=== PATIENT | female | born 1950 | race Caucasian/White ===

== ENCOUNTER → 2017-10-11 | Outpatient (CLI) | payer MEDICARE, OTHER ==
[~2017-10-11] MED LIST: ACET325 PO; ALLO300 PO; AMOCLA875 PO; ASCO500 PO; ATOR20 PO; Acidophilus La100 GM PO; CELE100 PO; FERR325 PO; GLIP5 PO; HYDR1TAB94 PO; LEVEMIR FL100 UNIT/1 SC; LEVFLO250 PO; LISI5; LORA.5 PO; MAGOXI400 PO; METF500 PO; METF500C PO; METO100ER PO; METO25 PO; METO50ER PO; METO5A PO; MYNEPHRON CAPSUL1 MG PO; Metformin HCl1000 MG PO; Nephro-Vite RX1 EA PO; Norco 7.5-3251 EACH PO; Omeprazole20 M1 PO; POTA10T PO; PREG150 PO; Prinivil10 MG PO; SITA100T2 PO; TRAZ100 PO; TRIHYD253B PO; XARELTO20 MG PO; ZINC220 PO
[2017-10-13 12:59] LABS: HPV Genotype 16 Not Detected (NOTDET); HPV Genotype 18 Not Detected (NOTDET)
[2017-10-20 14:43] LABS: HPV High Risk Other Detected (NOTDET)
== END ==
LOC: LAB 14:56 → LAB SHORT 14:56
PROVIDERS: Obstetrics & Gynecology
DX: Z01.419 Encounter for gynecological examination (general) (routine) without abnormal findings (principal)
CPT/HCPCS: 87624; G0123

== ENCOUNTER → 2017-10-11 | Outpatient (CLI) | payer MEDICARE, OTHER ==
[~2017-10-11] MED LIST changes: +Desyrel150 MG PO; +GEMF600 PO; -METO25 PO; +METO50 PO; +TORSE20 PO; +Tamiflu75 MG PO
== END | disposition home or self-care (01) ==
LOC: LAB SHORT 07:49 → PLD 07:49
DX: R93.8 Abnormal findings on diagnostic imaging of other specified body structures (principal)
CPT/HCPCS: 88305

== ENCOUNTER → 2017-11-17 | Outpatient (CLI) | payer MEDICARE, OTHER ==
[~2017-11-17] MED LIST changes: -Desyrel150 MG PO; -GEMF600 PO; +METO25 PO; -METO50 PO; -TORSE20 PO; -Tamiflu75 MG PO
== END ==
LOC: LAB SHORT 08:35 → LAB 08:35
DX: R87.810 Cervical high risk human papillomavirus (HPV) DNA test positive (principal)
CPT/HCPCS: 88305

== ENCOUNTER 2018-08-29 11:35 | Day surgery (SDC) | payer MEDICARE, OTHER ==
[~2018-08-29] VITALS: Ht 160 cm; Wt 97.6 kg
[~2018-08-29 11:35] MED LIST changes: +Desyrel150 MG PO; +GEMF600 PO; -METO25 PO; +METO50 PO; +TORSE20 PO; +Tamiflu75 MG PO
[2018-08-29] MEDS ORDERED: NORT10S PO (12:26)
[2018-08-29] MEDS ORDERED: INSULANPEN (12:27)
--- NOTE | 2018-08-29 12:32 | NUR ---
08/29/18 1232 Genaro Lovell 1ST IV ATTEMPT IN RFA UNSUCCESSFUL, ORSC.BDK 2ND IV ATTEMPT IN RAC UNSUCCESSFUL, ORSC.BDK 3RD IV ATTEMPT IN RFA SUCCESSFUL, ORSC.FLL
[2018-09-05] MEDS ORDERED: Prinivil10 MG PO (12:32)
[2018-09-05] MEDS ORDERED: GLIP5 PO (12:33)
[2018-09-05] MEDS ORDERED: TRAZ150T57 PO (12:34)
== END 2018-08-29 13:49 | disposition home or self-care (01) ==
LOC: ORSCSDS 11:35
DX: Z85.038 Personal history of other malignant neoplasm of large intestine (principal); D12.0 Benign neoplasm of cecum; K63.5 Polyp of colon; I48.91 Unspecified atrial fibrillation; I10 Essential (primary) hypertension; E11.9 Type 2 diabetes mellitus without complications; Z79.01 Long term (current) use of anticoagulants; Z79.4 Long term (current) use of insulin; Z79.899 Other long term (current) drug therapy
CPT/HCPCS: 82947; 88305; J2370; J7120

== ENCOUNTER 2018-09-18 06:33 | Day surgery (SDC) | payer MEDICARE, OTHER ==
[~2018-09-18] VITALS: Ht 160 cm; Wt 99.1 kg
[~2018-09-18 06:33] MED LIST changes: +INSULANPEN; +NORT10S PO; +TRAZ150T57 PO
[2018-09-18] MEDS ORDERED: NORT25 PO (07:20)
[2018-09-18] MEDS ORDERED: ATOR20 PO (07:21)
--- NOTE | 2018-09-18 07:34 | NUR ---
09/18/18 0734 Ezra Ceja FIRST IV ATTEMPT IN AC PER PT'S REQUEST INFILTRATED. SECOND ATTEMPT IN FOREARM WOULD NOT ADVANCE. PT TOLERATED PROCEDURES WELL.
--- NOTE | 2018-09-18 08:33 | NUR ---
09/18/18 0833 Guillermina Cardenas DEFICIT 175 PER AQUALUX MACHINE
== END 2018-09-18 09:20 | disposition home or self-care (01) ==
LOC: ORSCSDS 06:33
PROVIDERS: Obstetrics & Gynecology
PROC: 0UDB8ZX Extraction of Endometrium, Via Natural or Artificial Opening Endoscopic, Diagnostic (ICD-10-PCS; principal; 2018-09-18 07:30)
DX: N95.0 Postmenopausal bleeding (principal); N85.00 Endometrial hyperplasia, unspecified; N84.0 Polyp of corpus uteri; E11.9 Type 2 diabetes mellitus without complications; I10 Essential (primary) hypertension; I48.91 Unspecified atrial fibrillation; Z79.01 Long term (current) use of anticoagulants; Z79.4 Long term (current) use of insulin; Z79.899 Other long term (current) drug therapy; E66.01 Morbid (severe) obesity due to excess calories; Z68.38 Body mass index [BMI] 38.0-38.9, adult; R93.89 Abnormal findings on diagnostic imaging of other specified body structures
CPT/HCPCS: 82947; 88305; J1100; J2250; J2405; J3010

== ENCOUNTER → 2019-02-28 | Outpatient (CLI) | payer MEDICARE, OTHER ==
[~2019-02-28] MED LIST changes: +Econazole Nitra15 GM; +INSULANPEN SC; +MEDR5 PO; +NORT25 PO; +Nortriptyline H10 MG PO; +POTCHL20ER; +TRULICITY0.75 MG/0. SC
== END | disposition home or self-care (01) ==
LOC: PLD 08:38 → LAB SHORT 08:38
DX: N95.0 Postmenopausal bleeding (principal)
CPT/HCPCS: 88305

== ENCOUNTER 2019-04-03 07:01 | Day surgery (SDC) | payer MEDICARE, OTHER ==
[~2019-04-03] VITALS: Ht 160 cm; Wt 97.0 kg
[~2019-04-03 07:01] MED LIST changes: -Econazole Nitra15 GM; -POTCHL20ER
[2019-04-03] MEDS ORDERED: Econazole Nitra15 GM (08:04)
[2019-04-03] MEDS ORDERED: POTCHL20ER (08:04)
--- NOTE | 2019-04-03 08:25 | NUR ---
04/03/19 0825 Anni Castañeda S IODINE APPLIED TO RIGHT FOREARM TO SEE IF PT. HAD ANY REACTION. NO REACTION OBSERVED WHERE IODINE WAS APPLIED. PT. VERBALIZES IODINE/BETADINE GIVES HER BLISTERS/RASH IF OPEN AREA OR CUT. DR. SEALS & ORSC.OLG NOTIFIED OF BETADINE/IODINE ALLERGY & TAPE ALLERGY. ALSO DR. SEALS & ANDREAC.OLG NOTIFIED OF NO REACTION TO BETADINE ON RIGHT FOREARM WHEN APPLIED. PT. VERBALIZES TEGADERM OK TO USE FOR IV.
--- NOTE | 2019-04-03 08:48 | NUR ---
04/03/19 0848 Maye Hager UTERINE DEFICIT 500ML AWARE
--- NOTE | 2019-04-03 09:19 | NUR ---
04/03/19 0919 Marcia Coats PT INTO RECLINER. SCANT RED BLOOD IN PAD. CLEAN PAD APPLIED WITH MADONNA PANTIES PRIOR TO TRANSFER INTO RECLINER. PT DENIES PAIN AND NAUSEA. Colby CUNNINGHAM AT CHAIRSIDE.
== END 2019-04-03 09:44 | disposition home or self-care (01) ==
LOC: ORSCSDS 07:01
PROVIDERS: Obstetrics & Gynecology
PROC: 0UDB8ZX Extraction of Endometrium, Via Natural or Artificial Opening Endoscopic, Diagnostic (ICD-10-PCS; principal; 2019-04-03 08:15)
DX: N95.0 Postmenopausal bleeding (principal); N84.0 Polyp of corpus uteri; R93.89 Abnormal findings on diagnostic imaging of other specified body structures; E11.22 Type 2 diabetes mellitus with diabetic chronic kidney disease; I12.9 Hypertensive chronic kidney disease with stage 1 through stage 4 chronic kidney disease, or unspecified chronic kidney disease; I25.10 Atherosclerotic heart disease of native coronary artery without angina pectoris; N18.2 Chronic kidney disease, stage 2 (mild); Z79.4 Long term (current) use of insulin; Z79.84 Long term (current) use of oral hypoglycemic drugs; I48.91 Unspecified atrial fibrillation; Z79.01 Long term (current) use of anticoagulants
CPT/HCPCS: 82947; 88305; J1885; J2250; J2370; J2405; J2704; J3010; J7120

== ENCOUNTER 2020-03-11 14:26 | Inpatient (IN) | payer MEDICARE, OTHER ==
[~2020-03-11] VITALS: Ht 160 cm; Wt 106.1 kg
[~2020-03-11 14:26] MED LIST changes: -ALLO300 PO; +Econazole Nitra15 GM; -INSULANPEN SC; +POTCHL20ER; -TORSE20 PO; -TRULICITY0.75 MG/0. SC; -XARELTO20 MG PO
[2020-03-11 15:14] LABS: BASOPHILS ABSOLUTE AUTO 0.01 K/mm3 (0.00-0.23); BASOPHILS PERCENT AUTO 0 % (0-2); EOSINOPHILS ABSOLUTE AUTO 0.12 K/mm3 (0.00-0.68); EOSINOPHILS PERCENT AUTO 2 % (0-6); Hematocrit 39.8 % (33.0-51.0); Hemoglobin 13.2 g/dL (11.5-16.0); IMMATURE GRAN ABSOLUTE AUTO 0.04 K/mm3 (0.00-0.10); IMMATURE GRAN PERCENT AUTO 1 % (0-1); LYMPHOCYTES ABSOLUTE AUTO 1.54 K/mm3 (0.84-5.20); LYMPHOCYTES PERCENT AUTO 20 % (21-46); MONOCYTES ABSOLUTE AUTO 0.51 K/mm3 (0.16-1.47); MONOCYTES PERCENT AUTO 7 % (4-13); Mean Corpuscular HGB 29.4 pg (26.0-34.0); Mean Corpuscular HGB Conc 33.2 g/dL (31.5-36.5); Mean Corpuscular Volume 89 fL (80-100); Mean Platelet Volume 10.6 fL (9.1-12.4); NEUTROPHILS ABSOLUTE AUTO 5.33 K/mm3 (1.96-9.15); NEUTROPHILS PERCENT AUTO 71 % (41-73); Platelet Count 255 K/mm3 (150-400); Red Blood Cell Count 4.49 M/mm3 (3.80-5.20); White Blood Cell Count 7.55 K/mm3 (4.00-11.30)
[2020-03-11 15:49] LABS: Albumin, Blood 3.1 g/dL (3.4-5.0); Albumin/Globulin Ratio 0.8 (0.8-1.8); Bilirubin, Total 0.5 mg/dL (0.1-1.0); Bun/Creatinine Ratio 25.3 (12.0-20.0); Calcium, Blood 8.8 mg/dL (8.5-10.1); Creatinine, Blood 0.99 mg/dL (0.40-1.00); Potassium, Blood 3.7 mmol/L (3.5-5.5); Total Protein, Blood 7.1 g/dL (6.4-8.2); Troponin I 0.022 ng/mL (0.000-0.040)
[2020-03-11] MEDS ORDERED: ATOR20 PO (19:05)
[2020-03-11] MEDS ORDERED: METFORMIN HCL1000 M3 PO (19:05)
[2020-03-11] MEDS ORDERED: ALLO300 PO (19:05)
[2020-03-11] MEDS ORDERED: Metoclopramide10 MG PO (19:06)
[2020-03-11] MEDS ORDERED: XARELTO20 MG PO (19:07)
[2020-03-11] MEDS ORDERED: TORSE20 PO (19:09)
[2020-03-11] MEDS ORDERED: TRULICITY1.5 MG/0.1 SC (19:10)
[2020-03-11] MEDS ORDERED: BASAGLAR K100 UNIT/1 SC (19:10)
--- NOTE | 2020-03-12 06:50 | NUR ---
patient admitted for possible CHF. Patient came in with symptoms of shortness of breath, was given Lasix and improved. Patient remained in room air all night with no additional complaints of shortness of breath. Patient stable, no acute changes, no events overnight. pt refused prn bp control medications even after being edicated about the detention effects of high bp.
[2020-03-12 07:13] LABS: BASOPHILS ABSOLUTE AUTO 0.03 K/mm3 (0.00-0.23); BASOPHILS PERCENT AUTO 0 % (0-2); EOSINOPHILS ABSOLUTE AUTO 0.11 K/mm3 (0.00-0.68); EOSINOPHILS PERCENT AUTO 2 % (0-6); Hematocrit 40.6 % (33.0-51.0); Hemoglobin 13.4 g/dL (11.5-16.0); IMMATURE GRAN ABSOLUTE AUTO 0.03 K/mm3 (0.00-0.10); IMMATURE GRAN PERCENT AUTO 0 % (0-1); LYMPHOCYTES ABSOLUTE AUTO 1.27 K/mm3 (0.84-5.20); LYMPHOCYTES PERCENT AUTO 17 % (21-46); MONOCYTES ABSOLUTE AUTO 0.58 K/mm3 (0.16-1.47); MONOCYTES PERCENT AUTO 8 % (4-13); Mean Corpuscular HGB 29.4 pg (26.0-34.0); Mean Corpuscular Volume 89 fL (80-100); Mean Platelet Volume 10.2 fL (9.1-12.4); NEUTROPHILS ABSOLUTE AUTO 5.31 K/mm3 (1.96-9.15); NEUTROPHILS PERCENT AUTO 73 % (41-73); Platelet Count 236 K/mm3 (150-400); RDW Coefficient Variation 13.9 % (11.7-14.2); RDW Standard Deviation 45.1 fL (35.1-46.3); Red Blood Cell Count 4.56 M/mm3 (3.80-5.20); White Blood Cell Count 7.33 K/mm3 (4.00-11.30)
[2020-03-12 07:34] LABS: Bun/Creatinine Ratio 22.2 (12.0-20.0); Calcium, Blood 8.6 mg/dL (8.5-10.1); Creatinine, Blood 0.99 mg/dL (0.40-1.00); Potassium, Blood 3.4 mmol/L (3.5-5.5)
--- NOTE | 2020-03-12 09:01 | NUR ---
ASSUME CARE: PT IS ALERT AND ORIENTED X 3, VITALS HRR AFIB 90'S ON RESTING HR, TACHS UP TO [address] FRANKLIN CALLED AND MADE AWARE PT TO START ON METOPROLOL 100MG XLBID. BP SYSTOLIC 140'S, SATS ABOVE 95% ON ROOMAIR, AFEBRILE. PT RECEIVES LASIX FOR DIURESIS, PT STATED SHE FEELS MUCH BETTER TODAY THAN YESTERDAY AND THAT HER BREAHING IMPROVED. PT HAD BREAKFAST THIS MORNNG DENIES PAIN, NO OTHER ISSUES ENCOUNTERED WILL CONTINUE TO MONITOR
--- NOTE | 2020-03-12 13:45 | NUR ---
PT'S HRR REMAINED ON THE 130'S-140'S EVEN AFTER THE PO DOSE OF METOPROLOL 50MG IR AND ER. ORDER FOR ONETIME DOSE OF IV 5MG LOPRESSOR RECEIVED AND WAS GIVEN HR TREND DOWN TO 90'S FOR A SHORT AMOUNT OF TIME, HRR AT THIS TIME STILL AT AFIB 100'S-120'S, PT DENIES ANY CHEST PAIN/PALPITATIONS BUT SOMEHOW HAS MILD ORTHOPNEA AND IS RELIEVED BY REPOSITIONING. PT ALSO SCHEDULED FOR MRI TODAY ORDERED, SCREENING FORM FILLED BY THE PT. AT BEDSIDE. WILL CONTINUE TO MONITOR
--- NOTE | 2020-03-12 18:12 | NUR ---
PT SUMMARY: SEE PREVIOUS NOTES. HRR REMAINED ON THE 90'S-120'S AFIB, DENIES CHEST PAIN PRESSURE. BP SSTOLIC 130'S-150'S, REMAINED ON ROOMAIR, MILD SOB WITH EXERTION. NO ACUTE GOODEN FOR ZACHARIAH REST OF THE SHIFT, ECHO DONE TODAY EF INCREASED TO 55-60% FROM LAST ECHO 45%. HEAD MRI DON WEEL TO R/O POSS TIA, RESULT IS NEGATIVE FOR ANY ISCHEMIA/HEMMORHAGE. PT CURRENTLY IN BED NO COMPLAINS AT THIS TIME, INDEPENDENT IN THE ROOM. WILL REPORT TO ONCOMING SHIFT.
--- NOTE | 2020-03-13 04:04 | NUR ---
PT ATTEMPTING TO GET OOB WITHOUT HELP.DOES NOT USE CALL LIGHT.IMPULSIVE. CURRENTLY RIPPED TELE PATCHES OFF AND TOSSED TELE ASIDE. PT HAS DONE THIS AT LEAST TWICE TONIGHT.TAKES OFF CPAP WELL. PT IS ABLE TO TELL ME HER LOCATION, AND ,ALTHOUGH STATES SHE DOES NOT KNOW WHY SHE KEEPS TAKING EVERYTHING OFF.WILL CONTINUE WITH BED ALARM FOR SAFTEY.REMINDED OF CALL LIGHT USE FOR SAFETY WELL.
[2020-03-13 04:58] LABS: Bun/Creatinine Ratio 22.2 (12.0-20.0); Creatinine, Blood 1.08 mg/dL (0.40-1.00); Potassium, Blood 3.4 mmol/L (3.5-5.5)
--- NOTE | 2020-03-13 08:08 | NUR ---
SUMMARY PT CONFUSED DURING NIGHT. REMOVING TELE,CPAP AND BIOX PROBE.LESS CONFUSED THIS AM.CURRENTLY IN NO DISTRESS.
--- NOTE | 2020-03-13 17:49 | NUR ---
PCU DAYSHIFT SUMMARY PATIENT ALERT AND ORIENED TO SELF, LOCATION AND PARTIAL SITUATION - CONFUSED AT TIMES TO HISTORY, MEDICATIONS AND DATE/TIME. PATIENT DENIES ANY PAIN AT THIS TIME (DID HAVE A HEADACHE EARLIER TODAY RELIEVED WITH MEDICATIONS PER EMAR). PATIENT REMAINS IN AFIB IN THE 90'S- 115'S T/O SHIFT - MD FRANKLIN AWARE, NEW ORDERS GIVEN FOR MEDICATIONS (SEE EMAR). PATIENT SBA IN ROOM TO INDEPENDENT. HOME CPAP AT BEDSIDE AND CONTINUOUS BIOX IN PLACE. PATIENT REFUSED SHOWER THIS SHIFT. LUNG SOUNDS CLEAR TO CRACKLES IN BASES. NO ACUTE CHANGES NOTED. WILL CONTINUE MONITOR AND REPORT TO NOC SHIFT RN. CALL LIGHT W/I REACH AND BED ALARM ON.
--- NOTE | 2020-03-14 05:13 | NUR ---
SLEPT THROUGH NIGHT COMFORTABLY TELE 90'S-110'S CPAP @HS/ROOM AIR UP TO BATHROOM X3, NO BM SOME INCREASED CONFUSION AT NIGHT VSS CALL LIGHT WITHIN REACH, BED IN LOWEST POSITION. WILL CONTINUE TO MONITOR.
[2020-03-14 05:20] LABS: Bun/Creatinine Ratio 24.1 (12.0-20.0); Creatinine, Blood 1.08 mg/dL (0.40-1.00); Potassium, Blood 3.6 mmol/L (3.5-5.5)
--- NOTE | 2020-03-14 07:45 | NUR ---
pt laying in bed awake a/ox3, pleasant and cooperative with care, follows commadns well, denies pain at this time, lungs are clear t/o, resp even and unlbored, using home cpap at hs, r/a , no cough noted, hrirr, tele in place running afib per monitor, see strip, no edema noted, ppp+1, cap refill <3sec, vs stable, afebrile, iv site is clear and patent, bt x4, abd flat soft nontender, voids without diff, skin c/w/d, maew, jaclyn, call light in reach.
[2020-03-14] MEDS ORDERED: METO100ER PO (11:21)
[2020-03-14] MEDS ORDERED: AMOCLA500 PO (11:22)
--- NOTE | 2020-03-14 12:22 | NUR ---
PT HAS BEEN DISCHARGED TO HOME, WENT OVER DISCHARGE INSTRUCTIONS WITH HER, AND SPOUCE, SHE VERBALIZED UNDERSTANDING, NEW MEDS CALLED INTO [facility], IV REMOVED INTACT, SHE GOT HERSELF DRESSED, AND WAS TAKEN TO CAR VIA WHEELCHAIR. SHE HAS ALL HER BELONGINGS.
== END 2020-03-14 12:35 | disposition home or self-care (01) | DRG 292 ==
LOC: ER 14:26 → PCU 14:27
PROVIDERS: Internal Medicine Endocrinology, Diabetes & Metabolism; Nurse Practitioner Acute Care; Physician Assistant; ADMIT Internal Medicine
DX: I13.0 Hypertensive heart and chronic kidney disease with heart failure and stage 1 through stage 4 chronic kidney disease, or unspecified chronic kidney disease (principal); I48.19 Other persistent atrial fibrillation; Z68.41 Body mass index [BMI] 40.0-44.9, adult; E11.22 Type 2 diabetes mellitus with diabetic chronic kidney disease; N18.3 Chronic kidney disease, stage 3 (moderate); I50.9 Heart failure, unspecified; E11.621 Type 2 diabetes mellitus with foot ulcer; L97.529 Non-pressure chronic ulcer of other part of left foot with unspecified severity; D63.1 Anemia in chronic kidney disease; E66.9 Obesity, unspecified; J01.80 Other acute sinusitis; R20.2 Paresthesia of skin; Z85.038 Personal history of other malignant neoplasm of large intestine; Z79.01 Long term (current) use of anticoagulants; Z79.4 Long term (current) use of insulin; Z79.899 Other long term (current) drug therapy
CPT/HCPCS: 36415; 70450; 70551; 71046; 80048; 80053; 82947; 83735; 83880; 84100; 84484; 85025; 85379; 93005; 93010; 93306; 94762; 96372; 96374; 96375; 96376; 98960; 99285-25; A9270; A9270-GY; G0378; J0360; J1650; J1940

== ENCOUNTER 2021-07-01 22:12 | Inpatient (IN) | payer MEDICARE ==
[~2021-07-01] VITALS: Ht 157.5 cm; Wt 102.7 kg
[~2021-07-01 22:12] MED LIST changes: +ALLO300 PO; +AMOCLA500 PO; +BASAGLAR K100 UNIT/1 SC; +METFORMIN HCL1000 M3 PO; +Metoclopramide10 MG PO; +TORSE20 PO; +TRULICITY4.5 MG/0.5 SC; +XARELTO20 MG PO
[2021-07-01 22:45] LABS: BASOPHILS ABSOLUTE AUTO 0.02 K/mm3 (0.00-0.23); BASOPHILS PERCENT AUTO 0 % (0-2); EOSINOPHILS ABSOLUTE AUTO 0.03 K/mm3 (0.00-0.68); EOSINOPHILS PERCENT AUTO 0 % (0-6); Hematocrit 36.9 % (33.0-51.0); Hemoglobin 12.5 g/dL (11.5-16.0); IMMATURE GRAN ABSOLUTE AUTO 0.03 K/mm3 (0.00-0.10); IMMATURE GRAN PERCENT AUTO 0 % (0-1); LYMPHOCYTES ABSOLUTE AUTO 1.14 K/mm3 (0.84-5.20); LYMPHOCYTES PERCENT AUTO 13 % (21-46); MONOCYTES ABSOLUTE AUTO 0.49 K/mm3 (0.16-1.47); MONOCYTES PERCENT AUTO 6 % (4-13); Mean Corpuscular HGB 29.5 pg (26.0-34.0); Mean Corpuscular HGB Conc 33.9 g/dL (31.5-36.5); Mean Corpuscular Volume 87 fL (80-100); Mean Platelet Volume 10.1 fL (9.1-12.4); NEUTROPHILS ABSOLUTE AUTO 7.21 K/mm3 (1.96-9.15); NEUTROPHILS PERCENT AUTO 81 % (41-73); Platelet Count 243 K/mm3 (150-400); RDW Coefficient Variation 14.3 % (11.7-14.2); RDW Standard Deviation 44.7 fL (35.1-46.3); Red Blood Cell Count 4.24 M/mm3 (3.80-5.20); White Blood Cell Count 8.92 K/mm3 (4.00-11.30)
[2021-07-01 23:00] LABS: International Normalized Ratio 1.21; Prothrombin Time Results 12.5 Sec (9.7-11.5)
[2021-07-01 23:06] LABS: Alanine Aminotransfer (ALT/SGP 21 U/L (12-78); Albumin, Blood 2.7 g/dL (3.4-5.0); Albumin/Globulin Ratio 0.7 (0.8-1.8); Alk Phos 98 U/L (50-136); Anion Gap 6 mmol/L (6-16); Aspartate Aminotrans (AST/SGOT 16 U/L (12-37); Bilirubin, Total 0.6 mg/dL (0.1-1.0); Blood Urea Nitrogen 14 mg/dL (8-24); Bun/Creatinine Ratio 16.3 (12.0-20.0); CO2, Blood 31 mmol/L (21-32); Calcium, Blood 8.4 mg/dL (8.5-10.1); Chloride, Blood 99 mmol/L (98-108); Creatinine, Blood 0.86 mg/dL (0.40-1.00); Globulin, Blood 3.9 g/dL (2.2-4.0); Glomerular Filtration Rate >60 (60-); Glucose, Blood 176 mg/dL (70-99); Magnesium, Blood 1.2 mg/dL (1.6-2.4); Potassium, Blood 3.7 mmol/L (3.5-5.5); Sodium, Blood 136 mmol/L (136-145); Total Protein, Blood 6.6 g/dL (6.4-8.2); Troponin I <0.015 ng/mL (0.000-0.040)
[2021-07-01 23:58] LABS: Source, Urine Clean Catch
[2021-07-02] LABS: Bilirubin, Urine Neg (Neg); Blood, Urine Neg (Neg); Glucose Qualitative, Urine Neg (Neg); Ketones, Urine Neg (Neg); Leukocyte Esterase, Urine Neg (Neg); Nitrite, Urine Neg (Neg); Protein, Urine Neg (Neg); Urobilinogen, Urine NORM (Normal)
[2021-07-02 00:47] LABS: Appearance, Urine Clear (Clear); Color, Urine Yellow (P-Yellow)
[2021-07-02 00:51] LABS: Influenza A, PCR NEGATIVE (NEGATIVE); Influenza B, PCR NEGATIVE (NEGATIVE); Resp Syncytial Virus, PCR NEGATIVE (NEGATIVE); SARS-Cov-2 (COVID-19) PCR, MMC NEGATIVE (NEGATIVE)
[2021-07-02 05:59] LABS: Base Excess Venous 9.4 mmol/L; Bicarbonate Venous 31.6 mmol/L (24.0-30.0); PCO2 Venous 50.2 mmHg (38-42); PO2 Venous 46.9 mmHg (38-42); pH Blood Venous 7.43 (7.34-7.37)
[2021-07-02 06:37] LABS: BASOPHILS ABSOLUTE AUTO 0.01 K/mm3 (0.00-0.23); BASOPHILS PERCENT AUTO 0 % (0-2); EOSINOPHILS ABSOLUTE AUTO 0.03 K/mm3 (0.00-0.68); EOSINOPHILS PERCENT AUTO 0 % (0-6); Hematocrit 37.7 % (33.0-51.0); Hemoglobin 12.7 g/dL (11.5-16.0); IMMATURE GRAN ABSOLUTE AUTO 0.02 K/mm3 (0.00-0.10); IMMATURE GRAN PERCENT AUTO 0 % (0-1); LYMPHOCYTES ABSOLUTE AUTO 1.41 K/mm3 (0.84-5.20); LYMPHOCYTES PERCENT AUTO 20 % (21-46); MONOCYTES ABSOLUTE AUTO 0.57 K/mm3 (0.16-1.47); MONOCYTES PERCENT AUTO 8 % (4-13); Mean Corpuscular HGB 29.2 pg (26.0-34.0); Mean Corpuscular HGB Conc 33.7 g/dL (31.5-36.5); Mean Corpuscular Volume 87 fL (80-100); Mean Platelet Volume 10.2 fL (9.1-12.4); NEUTROPHILS ABSOLUTE AUTO 4.97 K/mm3 (1.96-9.15); NEUTROPHILS PERCENT AUTO 71 % (41-73); Platelet Count 242 K/mm3 (150-400); RDW Coefficient Variation 14.3 % (11.7-14.2); RDW Standard Deviation 44.4 fL (35.1-46.3); Red Blood Cell Count 4.35 M/mm3 (3.80-5.20); White Blood Cell Count 7.01 K/mm3 (4.00-11.30)
[2021-07-02 06:51] LABS: Alanine Aminotransfer (ALT/SGP 19 U/L (12-78); Albumin, Blood 2.7 g/dL (3.4-5.0); Albumin/Globulin Ratio 0.7 (0.8-1.8); Alk Phos 95 U/L (50-136); Anion Gap 6 mmol/L (6-16); Aspartate Aminotrans (AST/SGOT 17 U/L (12-37); Bilirubin, Total 0.5 mg/dL (0.1-1.0); Blood Urea Nitrogen 11 mg/dL (8-24); Bun/Creatinine Ratio 12.4 (12.0-20.0); CO2, Blood 32 mmol/L (21-32); Calcium, Blood 8.3 mg/dL (8.5-10.1); Chloride, Blood 102 mmol/L (98-108); Creatinine, Blood 0.89 mg/dL (0.40-1.00); Globulin, Blood 3.9 g/dL (2.2-4.0); Glomerular Filtration Rate >60 (60-); Glucose, Blood 119 mg/dL (70-99); Potassium, Blood 3.1 mmol/L (3.5-5.5); Sodium, Blood 140 mmol/L (136-145); Total Protein, Blood 6.6 g/dL (6.4-8.2)
[2021-07-02 07:14] LABS: CHOL/HDL RATIO 4.2; Cholesterol 131 mg/dL (50-200); HDL Cholesterol 31 mg/dL (>39); LDL/HDL RATIO 1.6; Low Density Lipoprotein Chol 50 mg/dL (0-110); Triglycerides 249 mg/dL (30-160); Very Low Density Lipoprot Chol 49 mg/dL (6-32)
[2021-07-02 08:18] LABS: Adenovirus Not Detected (NOT DETECT); Coronavirus 229E Not Detected (NOT DETECT); Coronavirus HKU1 Not Detected (NOT DETECT); Coronavirus NL63 Not Detected (NOT DETECT); Coronavirus OC43 Not Detected (NOT DETECT); Human Metapneumovirus Not Detected (NOT DETECT); Human Rhinovirus/Enterovirus Not Detected (NOT DETECT); Influenza A/2009-H1 Not Detected (NOT DETECT); Influenza A/H1 Not Detected (NOT DETECT); Influenza A/H3 Not Detected (NOT DETECT); Influenza B Not Detected (NOT DETECT); Parainfluenza Virus 1 Not Detected (NOT DETECT); Parainfluenza Virus 2 Not Detected (NOT DETECT); Parainfluenza Virus 3 Not Detected (NOT DETECT); Parainfluenza Virus 4 Not Detected (NOT DETECT); Respiratory Syncytial Virus Not Detected (NOT DETECT); SARS-Cov-2 (COVID-19), BioFire Not Detected (NOT DETECT)
[2021-07-02 08:19] LABS: Bordetella pertussis Not Detected (NOT DETECT); Chlamydophila pneumoniae Not Detected (NOT DETECT); Mycoplasma pneumoniae Not Detected (NOT DETECT)
--- NOTE | 2021-07-02 14:15 | NUR ---
Initial Interview with [facility] [employer] [facility] 1. Who did you speak with? Spoke with patient 2. What is the patient's prior level of functions? Independent lives with her Otto and granddaughter Lesly. Lives in a mobile home, ramp accessible. Patient healing from a broken right foot and has a 2W walker and a wheelchair for assistance as needed. and granddaughter help with housekeeping and meals. 3. What is the patient's current living situation? Patient lives with independently with and granddaughter in a mobile home. 4. Is the patient and/or family able to provide transportation to and from doctor's appointments and corn picker prescriptions? Yes, patient able to drive, but and granddaughter help with transportation needs. 5. Does patient still drive? Yes, but granddaughter and provides transportation as needed. 6. POA/PCP/NOK: PCP-JOE May/NOK: Otto 7. Discharge goals: TBD -Home: patient more than likely will discharge home-no barriers; patient has running water/utilities/safe home environment/strong support network of family and friends. -DME: TBD/patient owns a 2W walker and a wheelchair -Medication Management: self-management -Preferred Pharmacy: [facility] -Housekeeping need: granddaughter and assists as needed -Cooking: granddaughter and assists as needed 8. List barriers to discharge: None known at this time 9. Discharge Plan: TBD/more than likely patient home 10. PCP Follow up appointment: Will be scheduled within seven calendar days of discharge. [facility] Transition of care will contact patient.
[2021-07-02] MEDS ORDERED: CARTIA XT PO (16:03)
[2021-07-02] MEDS ORDERED: HYDROCODONE-AC1 EA15 PO (16:04)
[2021-07-02] MEDS ORDERED: Methocarbamol500 MG PO (16:05)
[2021-07-02] MEDS ORDERED: Ondansetron Odt8 MG MM (16:06)
[2021-07-02] MEDS ORDERED: TORSE20 PO (16:07)
[2021-07-02] MEDS ORDERED: PREGABALIN50 MG PO (16:08)
[2021-07-02] MEDS ORDERED: TRAM50 PO (16:08)
--- NOTE | 2021-07-02 19:29 | NUR ---
Alert and oriented x3 , able to make needs known. forgetful.Denies any pain. She was oriented to her room and call light use. Collier cath in place , draining clear yellow urine. vital signs are slight elevated. continue to monitor. Call light within reach.
[2021-07-03 05:13] LABS: BASOPHILS ABSOLUTE AUTO 0.03 K/mm3 (0.00-0.23); BASOPHILS PERCENT AUTO 0 % (0-2); EOSINOPHILS ABSOLUTE AUTO 0.14 K/mm3 (0.00-0.68); EOSINOPHILS PERCENT AUTO 2 % (0-6); Hematocrit 37.3 % (33.0-51.0); Hemoglobin 12.6 g/dL (11.5-16.0); IMMATURE GRAN ABSOLUTE AUTO 0.03 K/mm3 (0.00-0.10); IMMATURE GRAN PERCENT AUTO 0 % (0-1); LYMPHOCYTES ABSOLUTE AUTO 1.42 K/mm3 (0.84-5.20); LYMPHOCYTES PERCENT AUTO 20 % (21-46); MONOCYTES ABSOLUTE AUTO 0.63 K/mm3 (0.16-1.47); MONOCYTES PERCENT AUTO 9 % (4-13); Mean Corpuscular HGB 29.2 pg (26.0-34.0); Mean Corpuscular HGB Conc 33.8 g/dL (31.5-36.5); Mean Corpuscular Volume 87 fL (80-100); Mean Platelet Volume 10.2 fL (9.1-12.4); NEUTROPHILS ABSOLUTE AUTO 4.74 K/mm3 (1.96-9.15); NEUTROPHILS PERCENT AUTO 68 % (41-73); Platelet Count 232 K/mm3 (150-400); RDW Coefficient Variation 14.5 % (11.7-14.2); RDW Standard Deviation 45.3 fL (35.1-46.3); Red Blood Cell Count 4.31 M/mm3 (3.80-5.20); White Blood Cell Count 6.99 K/mm3 (4.00-11.30)
--- NOTE | 2021-07-03 06:26 | NUR ---
PATIENT ALERT AND ORIENTED X3, STABLE VITAL SIGNS, NO ACUTE CHANGES, TATE IN PLACE AND PATENT WITH CLEAR YELLO URINE. PAIN DENIES PAIN OR SOB. CALL LIGHT WITH IN REACH AND BED TO THE LOWEST POSTION.
[2021-07-03 06:42] LABS: Anion Gap 10 mmol/L (6-16); Blood Urea Nitrogen 12 mg/dL (8-24); Bun/Creatinine Ratio 13.8 (12.0-20.0); CO2, Blood 29 mmol/L (21-32); Calcium, Blood 8.7 mg/dL (8.5-10.1); Chloride, Blood 104 mmol/L (98-108); Creatinine, Blood 0.87 mg/dL (0.40-1.00); Glomerular Filtration Rate >60 (60-); Glucose, Blood 91 mg/dL (70-99); Potassium, Blood 3.6 mmol/L (3.5-5.5); Sodium, Blood 143 mmol/L (136-145)
[2021-07-03] MEDS ORDERED: AZIT250 PO (13:25)
[2021-07-03] MEDS ORDERED: CEFD300 PO (13:26)
--- NOTE | 2021-07-03 14:30 | NUR ---
DISCHARGE NOTE PATIENT WAS DISCHARGED THIS SHIFT WITH SPOUSE VIA WHEELCHAIR AT 1340. PATIENT VERBALIZED UNDERSTANDING OF DISCHARGE INSTRUCTIONS. VSS. SPOUSE CALLED TO MAKE FOLLOW UP APPT WITH DOCTOR. NOTHING FURTHER TO REPORT.
== END 2021-07-03 13:41 | disposition home or self-care (01) | DRG 871 ==
LOC: ER 22:12 → ERHOLD 22:14 → ER 22:18 → ERHOLD 07-02 03:55 → MEDS 07-02 17:28
PROVIDERS: Family Medicine; Student in an Organized Health Care Education/Training Program; ADMIT Family Medicine
DX: A41.9 Sepsis, unspecified organism (principal); J18.9 Pneumonia, unspecified organism; G93.41 Metabolic encephalopathy; R47.01 Aphasia; I50.22 Chronic systolic (congestive) heart failure; E87.2 Acidosis; I48.20 Chronic atrial fibrillation, unspecified; D63.1 Anemia in chronic kidney disease; E11.22 Type 2 diabetes mellitus with diabetic chronic kidney disease; Z20.822 Contact with and (suspected) exposure to COVID-19; R65.20 Severe sepsis without septic shock; G47.33 Obstructive sleep apnea (adult) (pediatric); Z96.653 Presence of artificial knee joint, bilateral; E78.5 Hyperlipidemia, unspecified; E11.65 Type 2 diabetes mellitus with hyperglycemia; E04.2 Nontoxic multinodular goiter; J47.9 Bronchiectasis, uncomplicated; E83.42 Hypomagnesemia; M1A.9XX0 Chronic gout, unspecified, without tophus (tophi); Z95.828 Presence of other vascular implants and grafts; Z88.8 Allergy status to other drugs, medicaments and biological substances; Z91.041 Radiographic dye allergy status; Z90.49 Acquired absence of other specified parts of digestive tract; Z98.890 Other specified postprocedural states; Z90.89 Acquired absence of other organs; Z93.2 Ileostomy status; Z79.01 Long term (current) use of anticoagulants; Z79.84 Long term (current) use of oral hypoglycemic drugs; Z79.899 Other long term (current) drug therapy
CPT/HCPCS: 0202U; 0241U; 36415; 51702; 70450; 70496; 70498; 71045; 71250; 73620; 74176; 80048; 80053; 80061; 81003; 82803; 82947; 83036; 83605; 83735; 83880; 84145; 84484; 85025; 85379; 85610; 85730; 87040; 93005; 93010; 96365; 96366; 96367; 96368; 96375; 96376; 99285-25; A9270; J0456; J0696; J1790; J1815; J3475; J7030; J7050; J7120; Q9967

== ENCOUNTER → 2023-01-21 | Outpatient (CLI) | payer MEDICARE ==
[~2023-01-21] MED LIST changes: +AZIT250 PO; +CARTIA XT PO; +CEFD300 PO; +HYDROCODONE-AC1 EA15 PO; +Methocarbamol500 MG PO; +Ondansetron Odt8 MG MM; +PREGABALIN50 MG PO; +TRAM50 PO
[2023-01-25 11:09] LABS: TRAMADOL >10870 (.)
== END ==
LOC: LAB SHORT 12:42 → LAB 12:42
PROVIDERS: Physician Assistant
DX: Z79.899 Other long term (current) drug therapy (principal)
CPT/HCPCS: G0480

== ENCOUNTER 2023-01-28 00:05 | Emergency (ER) | payer MEDICARE ==
[~2023-01-28] VITALS: Ht 160 cm; Wt 97.5 kg
[2023-01-28 02:45] VITALS: BP 144/97
== END 2023-01-28 02:59 | disposition home or self-care (01) ==
LOC: ER 00:05
DX: S01.01XA Laceration without foreign body of scalp, initial encounter (principal); E11.22 Type 2 diabetes mellitus with diabetic chronic kidney disease; N18.9 Chronic kidney disease, unspecified; I50.9 Heart failure, unspecified; I48.91 Unspecified atrial fibrillation; Z85.038 Personal history of other malignant neoplasm of large intestine; Z88.8 Allergy status to other drugs, medicaments and biological substances; Z91.048 Other nonmedicinal substance allergy status; Z79.01 Long term (current) use of anticoagulants; Z79.4 Long term (current) use of insulin; Z79.84 Long term (current) use of oral hypoglycemic drugs; Z79.899 Other long term (current) drug therapy; W06.XXXA Fall from bed, initial encounter
CPT/HCPCS: 12004; 70450; 99283-25

== ENCOUNTER 2024-07-12 10:33 | Day surgery (SDC) | payer MEDICARE ==
[~2024-07-12] VITALS: Ht 160 cm; Wt 91.1 kg
[~2024-07-12 10:33] MED LIST changes: +Balanced Salt Epinephrine Irrigation Solution 500 mL IR SCH; +DILT180 PO; +INSULANI; +JARDIANCE25 MG PO; +Lidocaine HCl/Pf 1% 5 ML VIAL XX SCH; +METO10 PO; +Moxifloxacin HCL 0.5 MG/0.1 ML 0.4MLSYR LEFTEYE SCH; +NEOMYCIN-POLYMY10 ML BOTHEARS; +ONDA4ODT MM; +OZEMPIC1 MG/0.72 SQ; +PHENYLEPHRINE\\TROPICAMIDE\\TETRACAINE OPHTHALMIC DILATING SOLN LEFTEYE PRN; +Povidone-Iodine 450 DROP/30 ML Solution LEFTEYE SCH; +Povidone-Iodine 450 DROP/30 ML Solution ONE; +ROSUVASTATIN CA20 MG PO; +Tetracaine HCl/Pf 0.5% Opth Soln 4 ml ONE; +Triamcinolone Inj Susp 40 MG / ML 1ML Vial INJ SCH; +Triamcinolone Inj Susp 40 MG / ML 1ML Vial ONE
[2024-07-12] MEDS ORDERED: Diazepam 2 MG Tab ONE (10:54)
--- NOTE | 2024-07-12 11:10 | NUR ---
07/12/24 1110 Yeimy Garcia IODINE SKIN TEST DONE AT 1105. NO REACTION AT 1110.
[2024-07-12] MEDS ORDERED: Tetracaine HCl 0.5% Opth Soln 15 ml LEFTEYE ONE (11:30)
[2024-07-12 11:57] VITALS: BP 137/86
== END 2024-07-12 12:15 | disposition home or self-care (01) ==
LOC: ORSCSDS 10:33
PROVIDERS: Ophthalmology
PROC: 08RK3JZ Replacement of Left Lens with Synthetic Substitute, Percutaneous Approach (ICD-10-PCS; principal; 2024-07-12 12:00)
DX: E11.36 Type 2 diabetes mellitus with diabetic cataract (principal); H25.813 Combined forms of age-related cataract, bilateral; E11.22 Type 2 diabetes mellitus with diabetic chronic kidney disease; I12.9 Hypertensive chronic kidney disease with stage 1 through stage 4 chronic kidney disease, or unspecified chronic kidney disease; N18.9 Chronic kidney disease, unspecified; E66.9 Obesity, unspecified; K21.9 Gastro-esophageal reflux disease without esophagitis; Z68.35 Body mass index [BMI] 35.0-35.9, adult; Z79.84 Long term (current) use of oral hypoglycemic drugs; Z79.899 Other long term (current) drug therapy
CPT/HCPCS: 82947; A9270; J3301; V2632

== ENCOUNTER 2024-07-19 10:27 | Day surgery (SDC) | payer MEDICARE ==
[~2024-07-19] VITALS: Ht 160 cm; Wt 91.7 kg
[~2024-07-19 10:27] MED LIST changes: -Moxifloxacin HCL 0.5 MG/0.1 ML 0.4MLSYR LEFTEYE SCH; +Moxifloxacin HCL 0.5 MG/0.1 ML 0.4MLSYR RIGHTEYE SCH; -PHENYLEPHRINE\\TROPICAMIDE\\TETRACAINE OPHTHALMIC DILATING SOLN LEFTEYE PRN; +PHENYLEPHRINE\\TROPICAMIDE\\TETRACAINE OPHTHALMIC DILATING SOLN RIGHTEYE PRN; -Povidone-Iodine 450 DROP/30 ML Solution LEFTEYE SCH
[2024-07-19] MEDS ORDERED: Diazepam 2 MG Tab ONE (10:38)
[2024-07-19] MEDS ORDERED: Diazepam 5 MG Tab ONE (10:39)
--- NOTE | 2024-07-19 10:49 | NUR ---
07/19/24 Miriam Lares PT REPORTS BETADINE SKIN TEST LAST CATARACT PROCEDURE LAST WEEK WITHOUT ANY ISSUES, NO REACTION WAS NOTED PER PATIENT.
[2024-07-19] MEDS ORDERED: Tetracaine HCl 0.5% Opth Soln 15 ml XX ONE (11:29)
[2024-07-19 12:09] VITALS: BP 151/86
== END 2024-07-19 12:01 | disposition home or self-care (01) ==
LOC: ORSCSDS 10:27
PROVIDERS: Ophthalmology
PROC: 08RJ3JZ Replacement of Right Lens with Synthetic Substitute, Percutaneous Approach (ICD-10-PCS; principal; 2024-07-19 12:00)
DX: E11.36 Type 2 diabetes mellitus with diabetic cataract (principal); I10 Essential (primary) hypertension; E78.5 Hyperlipidemia, unspecified; K21.9 Gastro-esophageal reflux disease without esophagitis; E66.9 Obesity, unspecified; Z68.35 Body mass index [BMI] 35.0-35.9, adult; Z79.84 Long term (current) use of oral hypoglycemic drugs; Z79.899 Other long term (current) drug therapy; Z79.85 Long-term (current) use of injectable non-insulin antidiabetic drugs
CPT/HCPCS: 82947; A9270; J3301; V2632

== ENCOUNTER → 2024-12-11 | Outpatient (CLI) | payer MEDICARE ==
[~2024-12-11] MED LIST changes: -Balanced Salt Epinephrine Irrigation Solution 500 mL IR SCH; -Lidocaine HCl/Pf 1% 5 ML VIAL XX SCH; -Moxifloxacin HCL 0.5 MG/0.1 ML 0.4MLSYR RIGHTEYE SCH; -PHENYLEPHRINE\\TROPICAMIDE\\TETRACAINE OPHTHALMIC DILATING SOLN RIGHTEYE PRN; -Povidone-Iodine 450 DROP/30 ML Solution ONE; -Tetracaine HCl/Pf 0.5% Opth Soln 4 ml ONE; -Triamcinolone Inj Susp 40 MG / ML 1ML Vial INJ SCH; -Triamcinolone Inj Susp 40 MG / ML 1ML Vial ONE
[2024-12-15 14:32] LABS: 6-ACETYLMORPHINE, URN, QUANT <10 ng/mL; CODEINE, URN, QUANT <20 ng/mL; HYDROCODONE, URN, QUANT <20 ng/mL; HYDROMORPHONE, URN, QUANT <20 ng/mL; MORPHINE, URN, QUANT <20 ng/mL; NORHYDROCODONE, URN, QUANT <20 ng/mL; NOROXYCODONE, URN, QUANT <20 ng/mL; NOROXYMORPHONE, URN, QUANT <20 ng/mL; OXYCODONE, URN, QUANT <20 ng/mL; OXYMORPHONE, URN, QUANT <20 ng/mL
== END | disposition home or self-care (01) ==
LOC: LAB 18:54 → LAB SHORT 18:54
PROVIDERS: Family Medicine
DX: Z51.81 Encounter for therapeutic drug level monitoring (principal); Z79.899 Other long term (current) drug therapy
CPT/HCPCS: G0480

== ENCOUNTER 2025-04-19 10:41 | Day surgery (SDC) | payer MEDICARE ==
[2025-04-19] MEDS ORDERED: Lidocaine HCl 4% Cream 5 GM ONE (12:47)
== END 2025-04-19 23:00 | disposition home or self-care (01) ==
LOC: WOUND 10:41
DX: E11.621 Type 2 diabetes mellitus with foot ulcer (principal); L97.522 Non-pressure chronic ulcer of other part of left foot with fat layer exposed; L97.512 Non-pressure chronic ulcer of other part of right foot with fat layer exposed; E11.610 Type 2 diabetes mellitus with diabetic neuropathic arthropathy; E11.51 Type 2 diabetes mellitus with diabetic peripheral angiopathy without gangrene; E11.40 Type 2 diabetes mellitus with diabetic neuropathy, unspecified; I87.2 Venous insufficiency (chronic) (peripheral); I48.20 Chronic atrial fibrillation, unspecified; N18.31 Chronic kidney disease, stage 3a; I50.9 Heart failure, unspecified; E11.22 Type 2 diabetes mellitus with diabetic chronic kidney disease; L97.511 Non-pressure chronic ulcer of other part of right foot limited to breakdown of skin; Z79.4 Long term (current) use of insulin; Z79.84 Long term (current) use of oral hypoglycemic drugs; Z88.8 Allergy status to other drugs, medicaments and biological substances
CPT/HCPCS: 73630; A9270; G0463

== ENCOUNTER 2025-04-30 18:58 | Emergency (ER) | payer MEDICARE ==
[~2025-04-30] VITALS: Ht 167.6 cm; Wt 99.8 kg
[2025-04-30 19:19] LABS: BASOPHILS ABSOLUTE AUTO 0.02 K/mm3 (0.00-0.23); BASOPHILS PERCENT AUTO 0 % (0-2); EOSINOPHILS ABSOLUTE AUTO 0.03 K/mm3 (0.00-0.68); EOSINOPHILS PERCENT AUTO 0 % (0-6); Hematocrit 35.7 % (33.0-51.0); Hemoglobin 11.6 g/dL (11.5-16.0); IMMATURE GRAN ABSOLUTE AUTO 0.05 K/mm3 (0.00-0.10); IMMATURE GRAN PERCENT AUTO 1 % (0-1); LYMPHOCYTES ABSOLUTE AUTO 1.19 K/mm3 (0.84-5.20); LYMPHOCYTES PERCENT AUTO 15 % (21-46); MONOCYTES ABSOLUTE AUTO 0.57 K/mm3 (0.16-1.47); MONOCYTES PERCENT AUTO 7 % (4-13); Mean Corpuscular HGB Conc 32.5 g/dL (31.5-36.5); Mean Corpuscular Volume 87 fL (80-100); NEUTROPHILS ABSOLUTE AUTO 5.91 K/mm3 (1.96-9.15); NEUTROPHILS PERCENT AUTO 76 % (41-73); NRBC ABSOLUTE 0.00 K/mm3 (0.00-0.02); NRBC Auto 0.0 /100 WBC (0.0-0.2); Platelet Count 191 K/mm3 (150-400); RDW Coefficient Variation 15.1 % (11.7-14.2); RDW Standard Deviation 47.8 fL (35.1-46.3)
[2025-04-30 19:53] LABS: Alanine Aminotransfer (ALT/SGP 22.0 U/L (12-78); Albumin, Blood 3.0 g/dL (3.4-5.0); Albumin/Globulin Ratio 0.9 (0.8-1.8); Anion Gap 7.0 mmol/L (3-11); Aspartate Aminotrans (AST/SGOT 19.0 U/L (12-37); Bilirubin, Total 0.8 mg/dL (0.1-1.0); Blood Urea Nitrogen 15.0 mg/dL (8-24); CO2, Blood 29.0 mmol/L (21-32); Calcium, Blood 9.0 mg/dL (8.5-10.1); Chloride, Blood 107.0 mmol/L (98-108); Creatinine, Blood 0.96 mg/dL (0.40-1.00); Globulin, Blood 3.4 g/dL (2.2-4.0); Glucose, Blood 219.0 mg/dL (70-99); Potassium, Blood 4.1 mmol/L (3.5-5.5); Sodium, Blood 139.0 mmol/L (136-145); Total Protein, Blood 6.4 g/dL (6.4-8.2)
[2025-04-30 20:20] VITALS: BP 142/88
[2025-04-30 22:33] LABS: Source, Urine Straight Cath
[2025-04-30 22:41] LABS: Bilirubin, Urine Neg (Neg); Glucose Qualitative, Urine 2+ (Neg); Ketones, Urine Neg (Neg); Leukocyte Esterase, Urine 1+ (Neg); Protein, Urine 2+ (Neg); Specific Gravity, Urine 1.020 (1.003-1.022); Urobilinogen, Urine NORM (Normal)
[2025-04-30 22:50] LABS: Color, Urine Yellow (P-Yellow)
[2025-04-30 23:01] LABS: Red Blood Cells, Urine 0-2 /hpf (0-2)
[2025-04-30] MEDS ORDERED: CEPH500 PO (23:27)
== END 2025-05-01 00:35 | disposition home or self-care (01) ==
LOC: ER 18:58
PROVIDERS: Emergency Medicine
DX: S01.01XA Laceration without foreign body of scalp, initial encounter (principal); R41.82 Altered mental status, unspecified; N30.00 Acute cystitis without hematuria; W18.30XA Fall on same level, unspecified, initial encounter; I48.91 Unspecified atrial fibrillation; E11.22 Type 2 diabetes mellitus with diabetic chronic kidney disease; N18.9 Chronic kidney disease, unspecified; Z90.710 Acquired absence of both cervix and uterus; I50.9 Heart failure, unspecified; Z88.0 Allergy status to penicillin; Z91.041 Radiographic dye allergy status; Z91.048 Other nonmedicinal substance allergy status; Z79.84 Long term (current) use of oral hypoglycemic drugs; Z79.899 Other long term (current) drug therapy
CPT/HCPCS: 12011; 70450; 72125; 80053; 81001; 85025; 87086; 93005; 93010; 99284-25; A6590; A9270

== ENCOUNTER 2025-05-02 09:47 | Inpatient (IN) | payer MEDICARE ==
[~2025-05-02] VITALS: Ht 154.9 cm; Wt 94.1 kg
[~2025-05-02 09:47] MED LIST changes: +CEPH500 PO
[2025-05-02 10:29] LABS: BASOPHILS ABSOLUTE AUTO 0.02 K/mm3 (0.00-0.23); BASOPHILS PERCENT AUTO 0 % (0-2); EOSINOPHILS ABSOLUTE AUTO 0.01 K/mm3 (0.00-0.68); EOSINOPHILS PERCENT AUTO 0 % (0-6); Hematocrit 35.9 % (33.0-51.0); Hemoglobin 11.9 g/dL (11.5-16.0); IMMATURE GRAN ABSOLUTE AUTO 0.05 K/mm3 (0.00-0.10); IMMATURE GRAN PERCENT AUTO 1 % (0-1); LYMPHOCYTES ABSOLUTE AUTO 0.81 K/mm3 (0.84-5.20); LYMPHOCYTES PERCENT AUTO 9 % (21-46); MONOCYTES ABSOLUTE AUTO 0.59 K/mm3 (0.16-1.47); MONOCYTES PERCENT AUTO 6 % (4-13); Mean Corpuscular HGB Conc 33.1 g/dL (31.5-36.5); Mean Corpuscular Volume 88 fL (80-100); NEUTROPHILS ABSOLUTE AUTO 7.95 K/mm3 (1.96-9.15); NEUTROPHILS PERCENT AUTO 84 % (41-73); NRBC ABSOLUTE 0.00 K/mm3 (0.00-0.02); NRBC Auto 0.0 /100 WBC (0.0-0.2); Platelet Count 188 K/mm3 (150-400); RDW Coefficient Variation 15.1 % (11.7-14.2); RDW Standard Deviation 48.8 fL (35.1-46.3)
[2025-05-02 10:53] LABS: Alanine Aminotransfer (ALT/SGP 19.0 U/L (12-78); Albumin, Blood 3.0 g/dL (3.4-5.0); Albumin/Globulin Ratio 0.8 (0.8-1.8); Anion Gap 9.0 mmol/L (3-11); Aspartate Aminotrans (AST/SGOT 13.0 U/L (12-37); Bilirubin, Total 1.2 mg/dL (0.1-1.0); Blood Urea Nitrogen 13.0 mg/dL (8-24); CO2, Blood 28.0 mmol/L (21-32); Calcium, Blood 9.0 mg/dL (8.5-10.1); Chloride, Blood 106.0 mmol/L (98-108); Creatinine, Blood 0.88 mg/dL (0.40-1.00); Globulin, Blood 3.9 g/dL (2.2-4.0); Glucose, Blood 226.0 mg/dL (70-99); Potassium, Blood 3.8 mmol/L (3.5-5.5); Sodium, Blood 139.0 mmol/L (136-145); Total Protein, Blood 6.9 g/dL (6.4-8.2)
[2025-05-02] MEDS ORDERED: HydrALAZINE HCl 20 MG / ML 1ML Vial IV PRN (12:40)
[2025-05-02] MEDS ORDERED: FLU VACC TS2025(65UP)/MF59C/PF 45 MCG/0.5 ML SYRINGE IM SCH (12:40)
[2025-05-02] MEDS ORDERED: FentaNYL Citrate 50 MCG/ML 2 ML Injection IV PRN (12:40)
[2025-05-02 13:29] LABS: CHOL/HDL RATIO 4.2; Cholesterol 156 mg/dL (50-200); HDL Cholesterol 37 mg/dL (>39); LDL/HDL RATIO 2.2; Low Density Lipoprotein Chol 82 mg/dL (0-110); Triglycerides 184 mg/dL (30-160); Very Low Density Lipoprot Chol 36 mg/dL (6-32)
[2025-05-02] MEDS ORDERED: NS 1,000 ML IV SCH (13:35)
[2025-05-02 15:34] VITALS: BP 141/87
[2025-05-02] MEDS ORDERED: PREG150 PO (15:48)
[2025-05-02] MEDS ORDERED: Insulin Regular 100 UNIT/ML 10ML Vial SC SCH (18:00)
[2025-05-02 18:13] VITALS: BP 134/89
[2025-05-02 19:20] VITALS: BP 122/71
--- NOTE | 2025-05-02 19:24 | NUR ---
ADMIT NOTE RECEIVED REPORT FROM ED. PT TO ROOM VIA GURNEY, TRANSFERED WITH 4 PERSON ASSIST AND SLIDER SHEET. PT ALERT, NONVERBAL, WILL BLINK TO ANSWER QUESTIONS. NIH ON ADMISSION 22. SPO2 >90% ON 1L O2 VIA NC, PLACED OXYMASK PATIENT BREATHING OUT OF MOUTH. RASH NOTED TO FOLDS, CLEANED, PICTURES IN CHART AND SILVER CLOTH PLACED. GRANDDAUGHTER AT BEDSIDE, ANSWERING QUESTIONS, ELIJAH STATES SHE HAS MEDICAL POA, PLANS TO BRING IN COPY IN THE AM. MRI COMPLETED THIS EVENING. OTHER VSS. REPORT GIVEN TO RN ASSUMING CARE OF PATIENT.
[2025-05-02 23:08] VITALS: BP 132/88
[2025-05-03 03:18] VITALS: BP 169/99
[2025-05-03 04:22] LABS: BASOPHILS ABSOLUTE AUTO 0.02 K/mm3 (0.00-0.23); BASOPHILS PERCENT AUTO 0 % (0-2); EOSINOPHILS ABSOLUTE AUTO 0.05 K/mm3 (0.00-0.68); EOSINOPHILS PERCENT AUTO 1 % (0-6); Hematocrit 35.2 % (33.0-51.0); Hemoglobin 11.5 g/dL (11.5-16.0); IMMATURE GRAN ABSOLUTE AUTO 0.05 K/mm3 (0.00-0.10); IMMATURE GRAN PERCENT AUTO 1 % (0-1); LYMPHOCYTES ABSOLUTE AUTO 0.88 K/mm3 (0.84-5.20); LYMPHOCYTES PERCENT AUTO 10 % (21-46); MONOCYTES ABSOLUTE AUTO 0.62 K/mm3 (0.16-1.47); MONOCYTES PERCENT AUTO 7 % (4-13); Mean Corpuscular HGB Conc 32.7 g/dL (31.5-36.5); Mean Corpuscular Volume 89 fL (80-100); NEUTROPHILS ABSOLUTE AUTO 6.98 K/mm3 (1.96-9.15); NEUTROPHILS PERCENT AUTO 81 % (41-73); NRBC ABSOLUTE 0.00 K/mm3 (0.00-0.02); NRBC Auto 0.0 /100 WBC (0.0-0.2); Platelet Count 198 K/mm3 (150-400); RDW Coefficient Variation 15.2 % (11.7-14.2); RDW Standard Deviation 49.1 fL (35.1-46.3)
[2025-05-03 04:49] LABS: Anion Gap 8.0 mmol/L (3-11); Blood Urea Nitrogen 14.0 mg/dL (8-24); CO2, Blood 26.0 mmol/L (21-32); Calcium, Blood 8.6 mg/dL (8.5-10.1); Chloride, Blood 109.0 mmol/L (98-108); Creatinine, Blood 0.84 mg/dL (0.40-1.00); Glucose, Blood 185.0 mg/dL (70-99); Potassium, Blood 3.6 mmol/L (3.5-5.5); Sodium, Blood 139.0 mmol/L (136-145)
--- NOTE | 2025-05-03 05:05 | NUR ---
SHIFT SUMMARY PT REPSONDS TO VERBAL STIMULI. NON-VERBAL. NIHSS 18 AT THIS TIME. R SIDED DEFICITS IMPROVING THROUGHOUT SHIFT. MINIMALLY FOLLOWS COMMANDS. BP STABLE, AFIB 90's. SpO2> 92% RA-3L VIA NC. PUREWICK IN PLACE WITH PHONG/CLOUDY OUTPUT. Q2 TURNS PROVIDED. PT REMAINED NPO UNTIL ST ABLE TO EVALUATE. NO OTHER EVENTS, WILL REPORT TO ONCOMING RN.
[2025-05-03 07:39] VITALS: BP 152/110
[2025-05-03] MEDS ORDERED: Enoxaparin 40 MG/0.4 ML SYR SC SCH (09:00)
[2025-05-03 11:07] VITALS: BP 160/94
[2025-05-03 11:24] LABS: pH Blood Venous 7.52 (7.34-7.37)
[2025-05-03] MEDS ORDERED: TPN Consult Notification XX ONE (14:00)
--- NOTE | 2025-05-03 16:09 | NUR ---
PALLIATIVE CARE VISIT: CONSULT RECEIVED FOR POLST/ADVANCED CARE PLANNING. SPOKE TO PRIMARY RN TODAY, PT CVA IS PROGRESSING AND PT HAS WORSENING SYMPTOMS. CT OF HEAD TO BE DONE TODAY. 1200 MET WITH SANDEEP NAVA IN PT ROOM. PT WAS ASLEEP, SNORING, RR E/U. DID NOT AWAKE DURING OUR CONVERSATION. ELIJAH IS POA, AD DOCUMENTS ARE PROVIDED TO SUPPORT THIS. DISCUSSED CODE STATUS AND GOC WITH ELIJAH. AT THIS TIME SHE WANTS PT TO BE DNR. AWAITING CT RESULTS TO DETERMINE FURTHER GOC. WE DID DISCUSS BRIEFLY SUPPORTIVE MEASURES VS COMFORT MEASURES. ELIJAH WILL WAIT FOR FURTHER TEST RESULTS AND TIME TO SEE IF PT IMPROVES. ACCORDING TO ADVANCE DIRECTIVE PT WOULD NOT WANT PEG TUBE, FEEDING TUBE. COPY OF AD SENT TO MEDICAL RECORDS TO BE FILED.
[2025-05-03 16:56] VITALS: BP 166/90
[2025-05-03] MEDS ORDERED: Parenteral Electolytes 40 ML,Potassium Phosphate Dibasic 30 MM,Multivitamins 10 ML,ZINC... IV SCH (17:00)
[2025-05-03 18:14] LABS: Source, Urine Clean Catch
[2025-05-03 18:16] LABS: Bilirubin, Urine Neg (Neg); Color, Urine Yellow (P-Yellow); Glucose Qualitative, Urine 2+ (Neg); Ketones, Urine 2+ (Neg); Leukocyte Esterase, Urine Neg (Neg); Protein, Urine 2+ (Neg); Specific Gravity, Urine 1.025 (1.003-1.022); Urobilinogen, Urine 1+ (Normal)
--- NOTE | 2025-05-03 18:25 | NUR ---
SHIFT SUMMARY: INCREASED LETHARGY THIS SHIFT, AROUSABLE TO VERBAL STIMULI, DOES NOT OBEY COMMANDS, CECILIO NOTIFIED AND CAME TO BEDSIDE, CT COMPLETED SEE IMAGING FOR RESULTS, UA COLLECTED AND SENT TO LAB, [facility] CONSULTING FOR STROKE: HOLD ANTICOAGULANTS UNTIL 05/08 (CONTINUE RECTAL ASPIRIN AND LOVENOX), PT MOVED RIGHT ARM AND CROSSED RIGHT LEG OVER HER LEFT (RIGHT SIDED DEFICITS POST STROKE). AFIB THIS SHIFT, HRR: 90'S-100'S. PT REMAINS NPO, PPN RUNNING PER ORDER, PT/OT/ST ORDERED BUT DID NOT WORK WITH THEM DUE TO PT COGNITION, PALLIATIVE CARE CONSULTED: PT NOW DNR. GRANDDAUGHTER, DAUGHTER, AND CAME TO BEDSIDE TODAY.
[2025-05-03 18:26] LABS: Red Blood Cells, Urine 0-2 /hpf (0-2)
[2025-05-03 19:53] VITALS: BP 157/116
--- NOTE | 2025-05-03 22:09 | NUR ---
ASSUMED CARE AT 0700. REPORT RECEIVED FROM DAY SHIFT RN. PT IS ROUSABLE TO VERBAL STIMULI. SHE IS BLINKING IN RESPONSE, BUT INCONSISTENTLY. UNABLE TO ASSESS ORIENTATION. SHE IS USING NOT ABLE TO VERBALIZE HER NEEDS OR MAKE THEM KNOWN. PT APPEARED SOMULENT, BUT BECAME INCREASINGLY RESTLESS IN BED AND APPEARED TO BE IN PAIN. TREATING PER EMAR. GRIMACING. TREATING FOR PAIN PER EMAR. SHE HAS RIGHT SIGHTED WEAKNESS T/O, BUT IS ABLE TO MOVE HER RIGHT ARM AND LEG, MINIMALLY. PERRLA. UNABLE TO COOPERATE WITH NIH ASSESSMENT. ON CONTINUOUS CARDIAC TELEMETRY, HR 100-110'S, IN AFIB. ON CONTINUOUS PULSE OXIMETRY AND 3L NC. PT HAS FREQUENT APNEIC EPISODES OF ABOUT 3-4 SECONDS AND O2 SAT DROPS INTO 80'S, QUICK TO RECOVER. FAMILY STATES SHE IS NONCOMPLIANT WITH CPAP USE AT HOME AT BASELINE. SHE CONTINUES TO TAKE HER NASAL CANULA OFF OF HER FACE. THIS RN FREQUENTLY REPLACING NASAL CANNULA. PUREWICK IN PLACE AND DRAINING TO SUCTION. REPOSITIONING Q2 AND FLOATING HEELS.
[2025-05-04 00:03] VITALS: BP 135/75
[2025-05-04 03:42] VITALS: BP 139/100
[2025-05-04 04:07] LABS: BASOPHILS ABSOLUTE AUTO 0.03 K/mm3 (0.00-0.23); BASOPHILS PERCENT AUTO 0 % (0-2); EOSINOPHILS ABSOLUTE AUTO 0.07 K/mm3 (0.00-0.68); EOSINOPHILS PERCENT AUTO 1 % (0-6); Hematocrit 35.3 % (33.0-51.0); Hemoglobin 11.5 g/dL (11.5-16.0); IMMATURE GRAN ABSOLUTE AUTO 0.05 K/mm3 (0.00-0.10); IMMATURE GRAN PERCENT AUTO 1 % (0-1); LYMPHOCYTES ABSOLUTE AUTO 1.03 K/mm3 (0.84-5.20); LYMPHOCYTES PERCENT AUTO 12 % (21-46); MONOCYTES ABSOLUTE AUTO 0.62 K/mm3 (0.16-1.47); MONOCYTES PERCENT AUTO 7 % (4-13); Mean Corpuscular HGB Conc 32.6 g/dL (31.5-36.5); Mean Corpuscular Volume 91 fL (80-100); NEUTROPHILS ABSOLUTE AUTO 6.78 K/mm3 (1.96-9.15); NEUTROPHILS PERCENT AUTO 79 % (41-73); NRBC ABSOLUTE 0.00 K/mm3 (0.00-0.02); NRBC Auto 0.0 /100 WBC (0.0-0.2); Platelet Count 201 K/mm3 (150-400); RDW Coefficient Variation 15.1 % (11.7-14.2); RDW Standard Deviation 49.0 fL (35.1-46.3)
[2025-05-04 04:43] LABS: Anion Gap 9.0 mmol/L (3-11); Blood Urea Nitrogen 16.0 mg/dL (8-24); CO2, Blood 25.0 mmol/L (21-32); Calcium, Blood 8.6 mg/dL (8.5-10.1); Chloride, Blood 108.0 mmol/L (98-108); Creatinine, Blood 0.72 mg/dL (0.40-1.00); Glucose, Blood 215.0 mg/dL (70-99); Magnesium, Blood 1.7 mg/dL (1.6-2.4); Phosphorus, Blood 2.8 mg/dL (2.5-4.9); Potassium, Blood 3.7 mmol/L (3.5-5.5); Sodium, Blood 138.0 mmol/L (136-145)
[2025-05-04 07:48] VITALS: BP 161/97
[2025-05-04 12:28] VITALS: BP 134/73
[2025-05-04 16:09] VITALS: BP 159/91
--- NOTE | 2025-05-04 16:25 | NUR ---
SHIFT SUMMARY: PT ALERT, UNABLE TO ASSESS ORIENTATION, CALM AND COOPERATIVE, BECOMES RESTLESS AND PULLS OFF O2 MASK AND REMOVED HER PATIENT ARM BAND. VERY SLEEPY THIS MORNING BY AFTERNOON WAS MORE ALERT AND INTERACTIVE THOUGH STILL NONVERBAL. PT MEANINGFULLY MADE EYE CONTACT AND ANSWERED A YES OR NO QUESTION BY SHAKING HEAD YES, PT SMILED AND LAUGHED OUT LOUD, ATTEMPTED TO ANSWER QUESTION VERBALLY BUT UNABLE TO PRODUCE WORD, JUST SOUND. BEDBATH, BED AND GOWN CHANGE THIS SHIFT. PPN RUNNING PER ORDER. , GRANDDAUGHTER ELIJAH, AND OTHER FAMILY AT BEDSIDE MOST OF SHIFT.
[2025-05-04 19:53] VITALS: BP 140/78
[2025-05-05] VITALS (10 sets, daily range): BP systolic 136–168; BP diastolic 78–124
[2025-05-05 04:10] LABS: BASOPHILS ABSOLUTE AUTO 0.02 K/mm3 (0.00-0.23); BASOPHILS PERCENT AUTO 0 % (0-2); EOSINOPHILS ABSOLUTE AUTO 0.12 K/mm3 (0.00-0.68); EOSINOPHILS PERCENT AUTO 2 % (0-6); Hematocrit 35.2 % (33.0-51.0); Hemoglobin 11.5 g/dL (11.5-16.0); IMMATURE GRAN ABSOLUTE AUTO 0.06 K/mm3 (0.00-0.10); IMMATURE GRAN PERCENT AUTO 1 % (0-1); LYMPHOCYTES ABSOLUTE AUTO 1.06 K/mm3 (0.84-5.20); LYMPHOCYTES PERCENT AUTO 14 % (21-46); MONOCYTES ABSOLUTE AUTO 0.52 K/mm3 (0.16-1.47); MONOCYTES PERCENT AUTO 7 % (4-13); Mean Corpuscular HGB Conc 32.7 g/dL (31.5-36.5); Mean Corpuscular Volume 87 fL (80-100); NEUTROPHILS ABSOLUTE AUTO 5.74 K/mm3 (1.96-9.15); NEUTROPHILS PERCENT AUTO 76 % (41-73); NRBC ABSOLUTE 0.00 K/mm3 (0.00-0.02); NRBC Auto 0.0 /100 WBC (0.0-0.2); Platelet Count 202 K/mm3 (150-400); RDW Coefficient Variation 15.0 % (11.7-14.2); RDW Standard Deviation 47.7 fL (35.1-46.3)
[2025-05-05 04:29] LABS: Anion Gap 9.0 mmol/L (3-11); Blood Urea Nitrogen 19.0 mg/dL (8-24); CO2, Blood 25.0 mmol/L (21-32); Calcium, Blood 8.9 mg/dL (8.5-10.1); Chloride, Blood 107.0 mmol/L (98-108); Creatinine, Blood 0.66 mg/dL (0.40-1.00); Glucose, Blood 215.0 mg/dL (70-99); Magnesium, Blood 1.8 mg/dL (1.6-2.4); Phosphorus, Blood 3.0 mg/dL (2.5-4.9); Potassium, Blood 3.8 mmol/L (3.5-5.5); Sodium, Blood 137.0 mmol/L (136-145)
--- NOTE | 2025-05-05 04:36 | NUR ---
SHIFT SUMMARY NO ACUTE EVENTS THIS SHIFT. PT MAKING SPORATIC COMMUNICATION WITH HEAD NODDING OR SHAKING AND STATED "OH COME ON" DURING A BRIEF CHANGE. AT TIMES SHE DOES NOT RESPOND WITH ANY MEANINGFUL COMMUNICATION. SHE CONTINUES TO PULL AT HER LINES, GOWN, AND CORDS, BUT LESS FREQUENTLY THAN THE NIGHT BEFORE. ON RA, WITH FREQUENT APNEIC EPISODES IN WHICH SHE WILL DESAT TO 80'S BUT RECOVERS QUICKLY BACK INTO 90'S. Q2 REPOSITIONING. PUREWICK IN PLACE AND DRAINING TO SUCTION. BED REST AT THIS TIME.
--- NOTE | 2025-05-05 06:09 | NUR ---
PT APPEARS MORE ALERT THIS MORNING. SHE IS SMILING, MAKING EYE CONTACT, NODDING AND SHAKING HER HEAD, SQUEEZING MY HANDS, RIGHT SUSTAINABILITY PROJECT MANAGER IS NOTABLY WEAKER THAN THE LEFT. SHE IS MAKING ATTEMPTS TO SCOOT HERSELF UP IN BED. SHE NODS HER HEAD WHEN ASKED IF SHE KNOWS WHERE SHE IS. SHE IS ABLE TO MAKE SOME CLEAR SENTENCES, SOMETIME STILL MUMBLING AND MAKING ONLY SOUNDS.
[2025-05-05] MEDS ORDERED: Metoprolol Tartrate 1 MG/ML 5 ML VIAL IV SCH (13:00)
[2025-05-05] MEDS ORDERED: Insulin Regular 100 UNIT/ML 10ML Vial SC SCH (18:00)
--- NOTE | 2025-05-05 18:04 | NUR ---
SHIFT SUMMARY: PT HAS BEEN ALERT, ORIENTED TO FAMILY MEMBERS AND SHOWING EXCITEMENT TO SEE THEM. PT ANSWERING SOME QUESTIONS, MOSTLY BY NODDING/SHAKING HER HEAD, SOMETIMES W/MUMBLED SPEECH, DID SAY "ALRIGHT" AND "I FEEL COMFORTABLE" CLEARLY. PT OOB TODAY WITH PT/OT TO CHAIR, TO BSC x2 USING FWW AND 1-2 ASSIST, SPENT A GOOD PORTION OF DAY IN RECLINER W/CHAIR ALARM FOR SAFETY. PT MAINTAINS O2 SATS >92% ON RA. AFIB ON MONITOR, RATE MOSTLY 90s-100s, NEW ORDERS PLACED FOR HTN AND PT MEDICATED x1 WITH IVP METOPROLOL. NPO STATUS MAINTAINED W/ORAL CARE, PT PENDING ST EVAL TOMORROW. PPN INFUSING PER ORDERS. PUREWICK TO LCS, DRAINING PHONG COLORED URINE. REDNESS IN FOLDS/PANNUS, SILVER CLOTHS IN PLACE. AT THIS TIME, PT IS IN RECLINER W/CHAIR ALARM ON, CALL LIGHT IN REACH.
[2025-05-05] MEDS ORDERED: Insulin Glargine 100 Unit/ML 3 ML SYR SC SCH (21:00)
[2025-05-06] VITALS (14 sets, daily range): BP systolic 139–174; BP diastolic 84–138
[2025-05-06 05:32] LABS: Anion Gap 8.0 mmol/L (3-11); Blood Urea Nitrogen 21.0 mg/dL (8-24); CO2, Blood 27.0 mmol/L (21-32); Calcium, Blood 9.0 mg/dL (8.5-10.1); Chloride, Blood 105.0 mmol/L (98-108); Creatinine, Blood 0.79 mg/dL (0.40-1.00); Glucose, Blood 179.0 mg/dL (70-99); Magnesium, Blood 1.8 mg/dL (1.6-2.4); Phosphorus, Blood 3.4 mg/dL (2.5-4.9); Potassium, Blood 3.7 mmol/L (3.5-5.5); Sodium, Blood 136.0 mmol/L (136-145)
--- NOTE | 2025-05-06 06:49 | NUR ---
PT STABLE THROUGHOUT SHIFT. PT AOX2, ABLE TO ANSWER SOME QUESTIONS WITH MULTIPLE WORD RESPONSES, OTHER TIMES IS UNABLE TO ANSWER APPROPRIATELY. PT IS MOVING ALL EXTREMITIES BUT IS WEAK ON RIGHT SIDE. PT TOLERATING PPN THROUGH RUE POWERGLIDE WELL. POWER GLIDE DRAWS AND FLUSHES WELL. PUREWICK IN PLACE, PT IS INCONTINENT OF BOTH BOWEL AND BLADDER. BED MOBILITY HAS IMPROVED AND PT IS ABLE TO TURN SELF FROM SIDE TO SIDE WHILE SLEEPING. VITAL SIGNS ESSENTIALLY NORMAL, MILDLY HYPERTENSIVE AND HR 90-100 AFIB. PT WAS WEARING SCDS BUT DID PULL THEM OFF AND DECLINED TO WEAR THEM TONIGHT WHEN ASKED.
[2025-05-06] MEDS ORDERED: TPN Consult Notification XX ONE (11:40)
[2025-05-06] MEDS ORDERED: Miconazole Nitrate 2% 85 GM PWD TOP SCH (14:00)
[2025-05-06] MEDS ORDERED: Parenteral Electolytes 40 ML,Potassium Phosphate Dibasic 30 MM,Multivitamins 10 ML,ZINC... IV SCH (17:00)
--- NOTE | 2025-05-06 18:50 | NUR ---
SHIFT SUMMARY: PT ALERT, ORIENTED TO SELF AND VISITORS, PT STATES "I SHOULD KNOW MY LAST NAME" WHEN ASKED TO STATE HER NAME. OTHER TIMES T/OUT THE DAY, PT NOT ANSWERING QUESTIONS, OR W/ RESPONSES THAT ARE A MIX OF CLEAR AND MUMBLED WORDS. PT HAS BEEN COOPERATIVE W/CARE. SPEECH THERAPIST TO BEDSIDE x2 TODAY, ONCE THIS AM AND THEN AGAIN THIS AFTERNOON AFTER PT BECAME MORE ALERT, NPO STATUS MAINTAINED W/PLANS TO REEVALUATE TOMORROW, ORAL CARE PER PROTOCOL, DR MERAZ TO BEDSIDE FOR SURGICAL CONSULT. O2 SATS MAINTAINED >92% ON RA. AFIB ON MONITOR, 80s-100s, PT TOLERATING METOPROLOL IVP. PT OOB TO RECLINER FOR MAJORITY OF DAY. NO BM THIS SHIFT. PT WITH ONE UNMEASURED/INCONTINENT VOID, PUREWICK IN PLACE AND DRAINING PHONG COLORED URINE TO LCS. PPN INFUSING PER ORDERS TO PG IN RON, PT TOLERATING WELL. AT THIS TIME, PT IS IN BED W/CALL LIGHT IN REACH.
[2025-05-07] VITALS (8 sets, daily range): BP systolic 111–171; BP diastolic 68–135
[2025-05-07 05:47] LABS: Anion Gap 11.0 mmol/L (3-11); Blood Urea Nitrogen 22.0 mg/dL (8-24); CO2, Blood 25.0 mmol/L (21-32); Calcium, Blood 9.3 mg/dL (8.5-10.1); Chloride, Blood 102.0 mmol/L (98-108); Creatinine, Blood 0.79 mg/dL (0.40-1.00); Glucose, Blood 179.0 mg/dL (70-99); Potassium, Blood 4.0 mmol/L (3.5-5.5); Sodium, Blood 134.0 mmol/L (136-145)
--- NOTE | 2025-05-07 06:09 | NUR ---
SHIFT SUMMARY PT BECOMES ALERT TO VERBAL AND PHYSICAL STIMULI, ABLE TO ANSWER SIMPLE QUESTIONS AT TIMES WITH YES NO OKAY AND SHAKING HEAD UP AND DOWN OR SIDE TO SIDE, SOMETIMES WILL JUST STARE AND NOT RESPOND TO QUESTIONS AND GO BACK TO HAVING EYES CLOSED, REPOSITIONED BY MEDICAL STAFF AND SELF PT MOVES SELF IN BED FAVORING LEFT SIDE. SPO2 GREATER THAN 92% ON RA, NO SIGNS OF RESPIRATORY DISTRESS NOTED. CONTINUOUS TELE MONITORING, AFIB 80-100 S, BP STABLE WITH MAP GREATER THAN 65, CAP REFILL WNL, PULSES PRESENT T/O. BOWEL TONES PRESENT IN ALL 4Q. PUREWICK IN PLACED CONNECTED TO LOW CONTINUOUS SUCTION, URINE PHONG IN COLOR. BED LOWEST POSITION, CALL LIGHT IN REACH, AWAITING TO GIVE REPORT TO ONCOMING RN.
[2025-05-07] MEDS ORDERED: Lidocaine 4% 1 Patch TOP SCH (09:00)
--- NOTE | 2025-05-07 17:17 | NUR ---
SHIFT SUMMARY PT ASLEEP IN BED AT TIME OF BEDSIDE REPORT W/ NOC RN. PT RESPONDS TO VERBAL STIMULI, UNABLE TO ANSWER ORIENTATION QUESTIONS, BUT DOES RESPOND TO NAME. PT OCCASIONALLY ABLE TO FOLLOW SIMPLE COMMANDS AND ANSWER YES OR NO QUESTIONS. PT MOVES ALL EXTREMITIES SPONTANEOUSLY, BUT CANNOT TURN SELF. Q2 TURNS MAINTAINED T/O SHIFT. R SIDE WEAKNESS IN UPPER AND LOWER EXTREMITIES. R FACIAL DROOP NOTED. SPEECH IS MUMBLED. AFB ON CONTINUOUS SURVEY CAD TECHNICIAN, CAP REFILL< 3 SEC, NO EDEMA NOTED. SBPS' IN 150-160'S. SATURATING >95% ON RA, BREATHS EVEN AND UNLABORED, OCASIONALLY TACHYPNEIC BUT RESOLVES SHORTLY W/ DEEP BREATHNG. BREATH SOUND CLEAR/DIM T/O. ABD SOFT AND NONTENDER, BOWEL SOUNDS HYPOACTIVE T/O QUADRANTS. PT WORKED W/ SPEECH THERAPY AND MODIFIED BARUM SWALLOW SCHEDULED FOR 05/08 AT 1030. PT TO REMAIN NPO. SKIN INTACT AND W/O BREAKDOWN, REDNESS NOTED IN PANNUS AREA. POWDER APPLIED LIBERALLY TO AVOID EXCESS MOISTURE. PT IN CHAIR FRON [id number] AFTER WORKING W/ OT, OT UNABLE TO COMPLETE COGNITION EVAL. ACCESS: RON PG PPN RUNNING AT 94ML/HR
--- NOTE | 2025-05-07 18:22 | NUR ---
PALLIATIVE CARE VISIT: THIS PT KNOWN FROM PRIOR VISIT. MET WITH DAUGHTER IN THE ROOM FOR SUPPORTIVE VISIT. PT IS AWAKE AND SMILES WITH INTERACTION BUT IS UNABLE TO FOLLOW ANY COMMANDS. SHE APPEARS COMFORTABLE AT THIS TIME. DISCUSSED GOC WITH DAUGHTER. SHE WANTS TO CONTINUE TO SEE IF HER MOM IMPROVES WELL ENOUGH TO START A DIET. SHE IS ADAMENT AT THIS TIME HER MOM WOULD NOT WANT A PEG TUBE. IF PT DOES NOT SHOW IMPROVEMENT AND CANNOT GO TO REHAB, SHE WILL WANT HALF-WAY PLACEMENT. PT DOES NOT HAVE FUNDS TO PAY FOR JUNIOR ESTIMATOR PLACEMENT. SHE IS INTERESTED IN MEDICAID PROCESS. DAUGHTER IS ALSO AGREEABLE TO HOSPICE BUT SHE DOES NOT FEEL SIGNIFICANT OTHER OCTAVIO WILL BE ABLE TO CARE FOR HER MOM AT HOME ON HOSPICE. SHE WOULD STILL BE INTERESTED IN HALF-WAY CARE IF HER MOM WAS PLACED ON HOSPICE. WE DISCUSSED POTENTIAL BARRIERS AND OPTIONS. INFORMED HER I WOULD HAVE CM COME AND TALK TO HER ALSO. PLAN IS FOR [facility] AGAIN TOMORROW TO SEE IF THERE IS ANY IMPROVEMENT.
[2025-05-08 03:02] VITALS: BP 161/100
[2025-05-08 05:01] LABS: BASOPHILS ABSOLUTE AUTO 0.03 K/mm3 (0.00-0.23); BASOPHILS PERCENT AUTO 0 % (0-2); EOSINOPHILS ABSOLUTE AUTO 0.14 K/mm3 (0.00-0.68); EOSINOPHILS PERCENT AUTO 2 % (0-6); Hematocrit 40.2 % (33.0-51.0); Hemoglobin 13.2 g/dL (11.5-16.0); IMMATURE GRAN ABSOLUTE AUTO 0.12 K/mm3 (0.00-0.10); IMMATURE GRAN PERCENT AUTO 2 % (0-1); LYMPHOCYTES ABSOLUTE AUTO 1.09 K/mm3 (0.84-5.20); LYMPHOCYTES PERCENT AUTO 16 % (21-46); MONOCYTES ABSOLUTE AUTO 0.51 K/mm3 (0.16-1.47); MONOCYTES PERCENT AUTO 7 % (4-13); Mean Corpuscular HGB Conc 32.8 g/dL (31.5-36.5); Mean Corpuscular Volume 86 fL (80-100); NEUTROPHILS ABSOLUTE AUTO 5.00 K/mm3 (1.96-9.15); NEUTROPHILS PERCENT AUTO 73 % (41-73); NRBC ABSOLUTE 0.00 K/mm3 (0.00-0.02); NRBC Auto 0.0 /100 WBC (0.0-0.2); Platelet Count 251 K/mm3 (150-400); RDW Coefficient Variation 15.0 % (11.7-14.2); RDW Standard Deviation 46.9 fL (35.1-46.3)
[2025-05-08 05:29] LABS: Alanine Aminotransfer (ALT/SGP 46 U/L (12-78); Albumin, Blood 2.9 g/dL (3.4-5.0); Albumin/Globulin Ratio 0.7 (0.8-1.8); Anion Gap 8 mmol/L (3-11); Aspartate Aminotrans (AST/SGOT 36 U/L (12-37); Bilirubin, Total 0.9 mg/dL (0.1-1.0); Blood Urea Nitrogen 25 mg/dL (8-24); CHOL/HDL RATIO 7.6; CO2, Blood 27 mmol/L (21-32); Calcium, Blood 9.7 mg/dL (8.5-10.1); Chloride, Blood 106 mmol/L (98-108); Cholesterol 205 mg/dL (50-200); Creatinine, Blood 0.74 mg/dL (0.40-1.00); Globulin, Blood 4.2 g/dL (2.2-4.0); Glucose, Blood 192 mg/dL (70-99); HDL Cholesterol 27 mg/dL (>39); LDL/HDL RATIO 4.5; Low Density Lipoprotein Chol 121 mg/dL (0-110); Potassium, Blood 4.4 mmol/L (3.5-5.5); Sodium, Blood 137 mmol/L (136-145); Total Protein, Blood 7.1 g/dL (6.4-8.2); Triglycerides 283 mg/dL (30-160); Very Low Density Lipoprot Chol 56 mg/dL (6-32)
--- NOTE | 2025-05-08 06:31 | NUR ---
SHIFT SUMMARY PT BECOMES ALERT TO VERBAL AND PHYSICAL STIMULI, ABLE TO ANSWER SIMPLE QUESTIONS AT TIMES WITH YES NO , SOMETIMES WILL JUST STARE AND NOT RESPOND TO QUESTIONS, INTERMITTENTLY ABLE TO FOLLOW SIMPLE COMMANDS REPOSITIONED BY MEDICAL STAFF AND SELF. CONTINUOUS SPO2, SPO2 GREATER THAN 92% ON RA WHILE AWAKE, WHILE SLEEPING PT DROPS TO MID 60 S BUT DOES NOT MAINTAIN AND QUICKLY RECOVERS/ PLACED ON 2L O2 VIA NC WHILE SLEEPING, NO SIGNS OF RESPIRATORY DISTRESS NOTED. CONTINUOUS TELE MONITORING, AFIB 80-90 S, BP STABLE WITH MAP GREATER THAN 65, CAP REFILL WNL, PULSES PRESENT T/O. BOWEL TONES PRESENT IN ALL 4Q, SMALL SMEAR THIS SHIFT. PUREWICK IN PLACED CONNECTED TO LOW CONTINUOUS SUCTION, URINE PHONG IN COLOR. BED LOWEST POSITION, CALL LIGHT IN REACH, AWAITING TO GIVE REPORT TO ONCOMING RN.
[2025-05-08 11:08] VITALS: BP 141/88
[2025-05-08] MEDS ORDERED: Diltiazem HCl 180 MG Cap.CD PO SCH (14:00)
[2025-05-08 15:19] VITALS: BP 129/93
--- NOTE | 2025-05-08 18:32 | NUR ---
SHIFT SUMMARY; ASSUMED CARE AT 0700. A/A/0X1-2. IS ABLE TO ANSWER QUESTIONS AT TIMES WITH SIMPLE ONE WORD RESPONSES. FOLLOWS COMMANDS WITH ROLLING AND STANDING TO RECLINER CHAIR. PURWICK IN PLACE AND CHANGED ON SHIFT. TPN INFUSING AT 94ML/HR. BARIUM SWALLOW TODAY COMPLETED AND PUREE DIET ORDERED, TOLERATING WELL. MEDS CRUSHED IN APPLESAUCE. RESTARTED SOME PO HOME MEDICATIONS TODAY. HR AFIB 120-140 AT TIMES, IMPROVED AFTER PO GIVEN. WILL CONTINUE TO MONITOR AND TREAT UNTIL CHANGE OF SHIFT AND REPORT GIVEN TO NOC SHIFT RN.
[2025-05-08 19:59] VITALS: BP 117/95
--- NOTE | 2025-05-08 22:16 | NUR ---
TRANSFER NOTE REPORT CALLED TO 3RD FLOOR MEDICAL, CHRISTIN GRACE. REVIEWED ALL OUTSTANDING ISSUES AND PROBLEMS TO DATE FOR TRANSFER VIA BED W/TELE TO ROOM 355 WITH ALL BELONGINGS.
[2025-05-08 22:40] VITALS: BP 144/85
[2025-05-09] VITALS (7 sets, daily range): BP systolic 112–168; BP diastolic 79–117
[2025-05-09 06:29] LABS: BASOPHILS ABSOLUTE AUTO 0.03 K/mm3 (0.00-0.23); BASOPHILS PERCENT AUTO 0 % (0-2); EOSINOPHILS ABSOLUTE AUTO 0.00 K/mm3 (0.00-0.68); EOSINOPHILS PERCENT AUTO 0 % (0-6); Hematocrit 43.7 % (33.0-51.0); Hemoglobin 14.5 g/dL (11.5-16.0); IMMATURE GRAN ABSOLUTE AUTO 0.15 K/mm3 (0.00-0.10); IMMATURE GRAN PERCENT AUTO 1 % (0-1); LYMPHOCYTES ABSOLUTE AUTO 0.75 K/mm3 (0.84-5.20); LYMPHOCYTES PERCENT AUTO 4 % (21-46); MONOCYTES ABSOLUTE AUTO 0.97 K/mm3 (0.16-1.47); MONOCYTES PERCENT AUTO 5 % (4-13); Mean Corpuscular HGB Conc 33.2 g/dL (31.5-36.5); Mean Corpuscular Volume 86 fL (80-100); NEUTROPHILS ABSOLUTE AUTO 16.98 K/mm3 (1.96-9.15); NEUTROPHILS PERCENT AUTO 90 % (41-73); NRBC ABSOLUTE 0.00 K/mm3 (0.00-0.02); NRBC Auto 0.0 /100 WBC (0.0-0.2); Platelet Count 290 K/mm3 (150-400); RDW Coefficient Variation 15.2 % (11.7-14.2); RDW Standard Deviation 47.6 fL (35.1-46.3)
[2025-05-09 06:51] LABS: Alanine Aminotransfer (ALT/SGP 65.0 U/L (12-78); Albumin, Blood 3.1 g/dL (3.4-5.0); Albumin/Globulin Ratio 0.7 (0.8-1.8); Anion Gap 12.0 mmol/L (3-11); Aspartate Aminotrans (AST/SGOT 30.0 U/L (12-37); Bilirubin, Total 1.1 mg/dL (0.1-1.0); Blood Urea Nitrogen 50.0 mg/dL (8-24); CO2, Blood 22.0 mmol/L (21-32); Calcium, Blood 9.8 mg/dL (8.5-10.1); Chloride, Blood 103.0 mmol/L (98-108); Creatinine, Blood 1.35 mg/dL (0.40-1.00); Globulin, Blood 4.4 g/dL (2.2-4.0); Glucose, Blood 309.0 mg/dL (70-99); Potassium, Blood 4.8 mmol/L (3.5-5.5); Sodium, Blood 132.0 mmol/L (136-145); Total Protein, Blood 7.5 g/dL (6.4-8.2)
--- NOTE | 2025-05-09 08:00 | NUR ---
PT MONITORED DURING THE SHIFT,PT HAS BEEN RESTLESS IN BED,PULLING WIRES AND CORDS.PT OCCASIONALLY ANSWERS NO/YES QUESTIONS.PPN INFUSING AT 94ML/HR.NO S/S OF PAIN OR SOB NOTED.CALL LIGHT AND PT'S ITEMS WITHIN REACH.BED ALARM IN USE FOR FALL PREVENTION SAFETY.BEDSIDE REPORT GIVEN TO DAYSHIFT NURSE.
--- NOTE | 2025-05-09 09:00 | NUR ---
PT'S REPORTS PT IS LESS ALERT THAN YESTERDAY. PT IS ANSWERING LIMITED YES/NO QUESTIONS. RED URINE ASSESSED IN PURWICK CANISTER. PHYSICAN NOTIFIED.
[2025-05-09] MEDS ORDERED: Insulin Glargine 100 Unit/ML 3 ML SYR SC SCH (12:32)
--- NOTE | 2025-05-09 12:35 | NUR ---
PHYSICAN ROUNDING ON PT. VERBAL ORDER FOR BLADDER SCAN. BLADDER SCAN COMPLETED, READING 1016 ML. PHYSICAN NOTIFIED. VERBAL ORDER FOR TATE PLACEMENT AND UA.
[2025-05-09] MEDS ORDERED: MetFORMIN HCl 500 mg PO SCH (15:00)
[2025-05-09 15:08] LABS: Source, Urine Foley catheter
[2025-05-09 15:17] LABS: Bilirubin, Urine Neg (Neg); Color, Urine Red (P-Yellow); Glucose Qualitative, Urine Neg (Neg); Ketones, Urine Neg (Neg); Leukocyte Esterase, Urine 3+ (Neg); Protein, Urine 4+ (Neg); Specific Gravity, Urine 1.010 (1.003-1.022); Urobilinogen, Urine 1+ (Normal)
[2025-05-09 15:25] LABS: Red Blood Cells, Urine TNTC /hpf (0-2)
--- NOTE | 2025-05-09 15:45 | NUR ---
TATE PLACED AND A SENT. DRAINING LARGE AMOUNTS OF BLOODY URINE. PHYSICAN NOTIFIED. NO NEW ORDERS AT THIS TIME.
[2025-05-09] MEDS ORDERED: CefTRIAXone Sodium 1,000 MG in NS 100 ML IV SCH (16:00)
[2025-05-09] MEDS ORDERED: NS 250 ML IV PRN (16:30)
[2025-05-09] MEDS ORDERED: Insulin Regular 100 UNIT/ML 10ML Vial SC SCH (18:00)
--- NOTE | 2025-05-09 19:35 | NUR ---
SHIFT SUMMARY PT IS A/O TO SELF. BEDREST AT THIS TIME. PER PT'S , PT LESS RESPONSIVE THAN YESTERDAY. THIS MORNING PURWICK COLLECTING SMALL AMOUNTS OF BLOODY URINE. PHYSICAN NOTIFIED. THIS AFTERNOON PT BLADDER SCANNED, READING >1L OF URINE RETAINING. TATE PLACED PER ORDER, DRAINING BLOODY URINE WITH CLOTS. UA COLLECTED. PHYSICAN NOTIFIED. TPN RUNNING AT 94 ML/HR. VERY LITTLE PO INTAKE THIS SHIFT. PLACED ON 2L NC WHILE ASLEEP TO MAINTAIN SATS >92%. TELE RUNNING AFIB IN THE 80-110'S. AT BEDSIDE THROUGHOUT THIS SHIFT.
[2025-05-09 23:33] LABS: pH Blood Venous 7.43 (7.34-7.37)
[2025-05-10 00:04] LABS: BASOPHILS ABSOLUTE AUTO 0.04 K/mm3 (0.00-0.23); BASOPHILS PERCENT AUTO 0 % (0-2); EOSINOPHILS ABSOLUTE AUTO 0.04 K/mm3 (0.00-0.68); EOSINOPHILS PERCENT AUTO 0 % (0-6); Hematocrit 39.0 % (33.0-51.0); Hemoglobin 12.8 g/dL (11.5-16.0); IMMATURE GRAN ABSOLUTE AUTO 0.15 K/mm3 (0.00-0.10); IMMATURE GRAN PERCENT AUTO 1 % (0-1); LYMPHOCYTES ABSOLUTE AUTO 1.32 K/mm3 (0.84-5.20); LYMPHOCYTES PERCENT AUTO 7 % (21-46); MONOCYTES ABSOLUTE AUTO 1.20 K/mm3 (0.16-1.47); MONOCYTES PERCENT AUTO 6 % (4-13); Mean Corpuscular HGB Conc 32.8 g/dL (31.5-36.5); Mean Corpuscular Volume 87 fL (80-100); NEUTROPHILS ABSOLUTE AUTO 17.00 K/mm3 (1.96-9.15); NEUTROPHILS PERCENT AUTO 86 % (41-73); NRBC ABSOLUTE 0.00 K/mm3 (0.00-0.02); NRBC Auto 0.0 /100 WBC (0.0-0.2); Platelet Count 255 K/mm3 (150-400); RDW Coefficient Variation 15.5 % (11.7-14.2); RDW Standard Deviation 49.1 fL (35.1-46.3)
[2025-05-10 03:41] VITALS: BP 139/74
[2025-05-10 07:41] VITALS: BP 117/79
[2025-05-10 11:43] VITALS: BP 131/77
[2025-05-10 16:15] VITALS: BP 134/83
--- NOTE | 2025-05-10 19:31 | NUR ---
SHIFT SUMMARY PT IS A/O TO SELF, FAMILY, AND CURRENT SITUATION AT TIMES. BEDREST AT THIS TIME. PT MUCH MORE AWAKE AND ALERT WHEN COMPARED TO YESTERDAY. PT RESPONDING TO YES/NO QUESTIONS WITH INTERMITTENT SPEECH THAT IS DIFFICULT TO UNDERSTAND AT TIMES. EXPRESSIVE APHASIA NOTED. PT EATING MOST TO ALL OF HER MEALS THIS SHIFT WITH ASSISTANCE. TOLERATING PUREED DIET WITH THICKENED LIQUIDS. PPN STOPPED THIS SHIFT. MEDS CRUSHED WITH APPLESAUCE. ON RA WHILE AWAKE. ON 2L NC WHILE ASLEEP R/T HX OF SLEEP APNEA. TATE IN PLACE DRAINING RED-TINGED URINE WITH SEDIMENT, HOWEVER MUCH MORE CLEAR WHEN COMPARED TO THE START OF THIS SHIFT. PT HAVING MULTIPLE LOOSE BM'S THIS AFTERNOON. PT'S REPORTS THAT THIS IS AT BASELINE R/T A HX OF COLON CX. PT'S ALSO REPORTS MEDICATIONS DO NOT HELP WITH THE LOOSE BM'S. ON TELE RUNNING AFIB IN THE 90'S. PT IS PLEASANT AND COOPERATIVE WITH CARE.
[2025-05-10 19:53] VITALS: BP 133/77
[2025-05-11 00:31] VITALS: BP 124/85
[2025-05-11 04:00] VITALS: BP 114/76
--- NOTE | 2025-05-11 04:29 | NUR ---
SHIFT SUMMARY PATIENT HAD NO ACUTE CHANGES. AXOX 2 AND BEDREST. RESPONDS TO YES/NO QUESTIONS. DENIES CHEST PAIN, SOB, AND N/V. VSS/AFEBRILE. TATE PATENT AND DRAINING TO GRAVITY WITH RED TINGED URINE WITH SEDIMENT. CBG 193. TAKES MEDS CRUSHED IN APPLESAUCE. LOOSE STOOLS CONTINUE. CALL LIGHT IN REACH. BED IN LOWEST POSTION. WILL CONTINUE TO MONITOR UNTIL DAY SHIFT NURSE ASSUMES CARE.
[2025-05-11] MEDS ORDERED: Insulin Human Lispro 100 Units/ML 3ML Syringe SC SCH (07:30)
[2025-05-11 07:55] VITALS: BP 115/80
[2025-05-11 11:59] VITALS: BP 161/79
[2025-05-11] MEDS ORDERED: CefTRIAXone Sodium 1,000 MG in NS 100 ML IV ONE (12:35)
[2025-05-11 12:40] LABS: BASOPHILS ABSOLUTE AUTO 0.03 K/mm3 (0.00-0.23); BASOPHILS PERCENT AUTO 0 % (0-2); EOSINOPHILS ABSOLUTE AUTO 0.10 K/mm3 (0.00-0.68); EOSINOPHILS PERCENT AUTO 1 % (0-6); Hematocrit 39.4 % (33.0-51.0); Hemoglobin 12.9 g/dL (11.5-16.0); Mean Corpuscular HGB Conc 32.7 g/dL (31.5-36.5); Mean Corpuscular Volume 89 fL (80-100); NRBC ABSOLUTE 0.00 K/mm3 (0.00-0.02); NRBC Auto 0.0 /100 WBC (0.0-0.2); Platelet Count 273 K/mm3 (150-400); RDW Coefficient Variation 15.3 % (11.7-14.2); RDW Standard Deviation 49.8 fL (35.1-46.3)
[2025-05-11 12:46] LABS: IMMATURE GRAN ABSOLUTE AUTO 0.09 K/mm3 (0.00-0.10); IMMATURE GRAN PERCENT AUTO 1 % (0-1); LYMPHOCYTES ABSOLUTE AUTO 1.21 K/mm3 (0.84-5.20); LYMPHOCYTES PERCENT AUTO 11 % (21-46); MONOCYTES ABSOLUTE AUTO 0.73 K/mm3 (0.16-1.47); MONOCYTES PERCENT AUTO 7 % (4-13); NEUTROPHILS ABSOLUTE AUTO 8.72 K/mm3 (1.96-9.15); NEUTROPHILS PERCENT AUTO 80 % (41-73)
[2025-05-11 12:59] LABS: Alanine Aminotransfer (ALT/SGP 37.0 U/L (12-78); Albumin, Blood 2.6 g/dL (3.4-5.0); Albumin/Globulin Ratio 0.6 (0.8-1.8); Anion Gap 9.0 mmol/L (3-11); Aspartate Aminotrans (AST/SGOT 26.0 U/L (12-37); Bilirubin, Total 0.6 mg/dL (0.1-1.0); Blood Urea Nitrogen 64.0 mg/dL (8-24); CO2, Blood 23.0 mmol/L (21-32); Calcium, Blood 9.6 mg/dL (8.5-10.1); Chloride, Blood 112.0 mmol/L (98-108); Creatinine, Blood 1.11 mg/dL (0.40-1.00); Globulin, Blood 4.4 g/dL (2.2-4.0); Glucose, Blood 195.0 mg/dL (70-99); Magnesium, Blood 2.2 mg/dL (1.6-2.4); Potassium, Blood 4.2 mmol/L (3.5-5.5); Sodium, Blood 140.0 mmol/L (136-145); Total Protein, Blood 7.0 g/dL (6.4-8.2)
[2025-05-11] MEDS ORDERED: INSULANPEN SC (15:35)
[2025-05-11] MEDS ORDERED: HUMALOG KW100 UNIT/1 SC (15:39)
[2025-05-11] MEDS ORDERED: ASPI81CH PO (15:40)
[2025-05-11] MEDS ORDERED: DILTIAZEM HCL PO (15:42)
[2025-05-11] MEDS ORDERED: METO50 PO (15:43)
--- NOTE | 2025-05-11 17:55 | NUR ---
PT DISHCARGED TO TRANSFER OVER TO [facility]IA WHEELCHAIR VAN. PT HAS HAD NOT ACUTE CHANGES AND HAS BEEN COOPERATIVE OF CARE. PT CONTINUES TO HAVE LOOSE YELLOW BMs. APPARENTLY FROM SHE HAS THIS ALOT. PT DISCHARGED WITH TATE IN PLACE DUE TO NEUROGENIC BLADDER. CONTINUES TO HAVE TROUBLE SPEAKIING. WAS ABLE TO STAND TWO PERSON WITH GAITBELT TO CHAIR. HAD REMOVED ALL PERSONAL BELONGINGS. SANJAY CAZARES CALLED AND GAVE REPORT PRIOR TO PT BEING TRANSPORTED AND PACKET WAS SENT WITH TECHNICAL ASST.
== END 2025-05-11 17:24 | DRG 64 ==
LOC: ER 09:47 → PCU 12:36 → MEDS 05-08 22:33
PROVIDERS: Emergency Medicine; Internal Medicine; Nurse Practitioner Acute Care; ADMIT Family Medicine
PROC: 0T9B70Z Drainage of Bladder with Drainage Device, Via Natural or Artificial Opening (ICD-10-PCS; principal; 2025-05-04)
PROC: 3E0336Z Introduction of Nutritional Substance into Peripheral Vein, Percutaneous Approach (ICD-10-PCS; 2025-05-04)
PROC: 0DH63UZ Insertion of Feeding Device into Stomach, Percutaneous Approach (ICD-10-PCS; 2025-05-04)
PROC: 3E03329 Introduction of Other Anti-infective into Peripheral Vein, Percutaneous Approach (ICD-10-PCS; 2025-05-09)
DX: I63.89 Other cerebral infarction (principal); G93.41 Metabolic encephalopathy; I13.0 Hypertensive heart and chronic kidney disease with heart failure and stage 1 through stage 4 chronic kidney disease, or unspecified chronic kidney disease; I48.20 Chronic atrial fibrillation, unspecified; N39.0 Urinary tract infection, site not specified; Z68.42 Body mass index [BMI] 45.0-49.9, adult; G81.91 Hemiplegia, unspecified affecting right dominant side; R47.01 Aphasia; R33.8 Other retention of urine; R29.720 NIHSS score 20; G47.33 Obstructive sleep apnea (adult) (pediatric); I27.20 Pulmonary hypertension, unspecified; E66.9 Obesity, unspecified; R31.9 Hematuria, unspecified; R29.810 Facial weakness; E11.22 Type 2 diabetes mellitus with diabetic chronic kidney disease; D63.1 Anemia in chronic kidney disease; N18.9 Chronic kidney disease, unspecified; E11.42 Type 2 diabetes mellitus with diabetic polyneuropathy; Z96.653 Presence of artificial knee joint, bilateral; I50.9 Heart failure, unspecified; R13.10 Dysphagia, unspecified; Z90.49 Acquired absence of other specified parts of digestive tract; Z93.2 Ileostomy status; Z98.891 History of uterine scar from previous surgery; Z90.89 Acquired absence of other organs; Z98.890 Other specified postprocedural states; Z87.39 Personal history of other diseases of the musculoskeletal system and connective tissue; Z91.199 Patient's noncompliance with other medical treatment and regimen due to unspecified reason; Z99.89 Dependence on other enabling machines and devices; Z88.8 Allergy status to other drugs, medicaments and biological substances; Z91.048 Other nonmedicinal substance allergy status; Z88.0 Allergy status to penicillin; Z79.899 Other long term (current) drug therapy; Z79.84 Long term (current) use of oral hypoglycemic drugs; Z79.01 Long term (current) use of anticoagulants; Z79.2 Long term (current) use of antibiotics; Z85.038 Personal history of other malignant neoplasm of large intestine; Z45.2 Encounter for adjustment and management of vascular access device
CPT/HCPCS: 12011; 36415; 70450; 70551; 72125; 74230; 80048; 80053; 80061; 81001; 82803; 82947; 83036; 83735; 84100; 84443; 85025; 87077; 87086; 87186; 92526; 92610; 92611; 93005; 93010; 93306; 93880; 94760; 94762; 97110; 97112; 97162; 97166; 97530; 97535; 99284-25; 99285-25; A6590; A9270; J0360; J0696; J1650; J1815; J3010; J3411; J7030; J7050

== ENCOUNTER 2025-06-28 06:46 | Day surgery (SDC) | payer MEDICARE ==
[~2025-06-28 06:46] MED LIST changes: +ASPI81CH PO; +DILTIAZEM HCL PO; +HUMALOG KW100 UNIT/1 SC; +INSULANPEN SC
== END 2025-06-28 23:00 | disposition home or self-care (01) ==
LOC: WOUND 06:46
DX: E11.621 Type 2 diabetes mellitus with foot ulcer (principal); E11.51 Type 2 diabetes mellitus with diabetic peripheral angiopathy without gangrene; I87.2 Venous insufficiency (chronic) (peripheral); E11.40 Type 2 diabetes mellitus with diabetic neuropathy, unspecified; E11.22 Type 2 diabetes mellitus with diabetic chronic kidney disease; N18.6 End stage renal disease; Z91.048 Other nonmedicinal substance allergy status; Z88.8 Allergy status to other drugs, medicaments and biological substances
CPT/HCPCS: G0463